=== PATIENT | male | born 1945 | race Caucasian/White ===

== ENCOUNTER 2017-07-17 11:05 | Day surgery (SDC) | payer OTHER, MEDICARE ==
[~2017-07-17 11:05] MED LIST: CLINDAMYCIN 900 MG/DEXTROSE 50 ML IV ONE
[2017-07-17] MEDS ORDERED: LR 1,000 ML IV ONE ×2 (11:52)
[2017-07-17] MEDS ORDERED: LIDOCAINE 1% 2 ML INJ ID PRN ×2 (11:52)
[2017-07-17] MEDS ORDERED: OXYCODONE/APAP 5/325 TAB PO PRN ×4 (12:09→13:07)
[2017-07-17] MEDS ORDERED: ONDANSETRON DISINTEGRATING 4 MG TAB PO PRN ×2 (12:09)
[2017-07-17] MEDS ORDERED: ONDANSETRON 4 MG/2 ML VIAL IVP PRN ×2 (12:09)
--- NOTE | 2017-07-17 12:09 | PDHPUP ---
History & Physical Update H&P update statement: This history and physical update is based on an assessment of the patient which was completed after admission or registration (within 24 hours), but prior to the surgery/procedure. H&P update: H&P reviewed & patient examined, no change in patient's condition since H&P completed
[2017-07-17] MEDS ORDERED: CLINDAMYCIN 900 MG/DEXTROSE/50 ML BAG IV ONE ×2 (12:10)
[2017-07-17] MEDS ORDERED: BUPIVACAINE 0.5% 30 ML SDV ONE ×2 (12:13)
--- NOTE | 2017-07-17 12:13 | PDANEPAE ---
ANE History of Present Illness 72 yo M with diabetic foot, here for amputation R big toe ANE Past Medical History - Cardiovascular History Hx Hypertension: Yes Hx Arrhythmias: No Hx Chest Pain: No Hx Coronary Artery / Peripheral Vascular Disease: Yes Hx CHF / Valvular Disease: No Hx Palpitations: No Cardiovascular History Comment: LBBB. CARDIOMYOPATHY. SEPTIC SHOCK 02/2015 - Pulmonary History Hx COPD: Yes Hx Asthma/Reactive Airway Disease: No Hx Recent Upper Respiratory Infection: No Hx Oxygen in Use at Home: No Hx Sleep Apnea: Yes Sleep Apnea Screening Result - Last Documented: Positive Pulmonary History Comment: ZIYAD USES C-PAP. INSTRUCTED TO BRING DOS - Neurologic History Hx Cerebrovascular Accident: No Hx Seizures: No Hx Dementia: No Neurologic History Comment: BRAIN INJURY RESULTING IN HYPOXEMIA AND RESIDUAL COGNITIVE ISSUES. 02/2015 - Endocrine History Hx Diabetes: Yes Endocrine History Comment: IDDM - Renal History Hx Renal Disorders: Yes Renal History Comment: ACUTE RENAL FAILURE 2014. NOW WITH CHRONIC KIDNEY DX - Liver History Hx Hepatic Disorders: No - Neurological & Psychiatric Hx Hx Neurological and Psychiatric Disorders: No - Cancer History Hx Cancer: Yes Cancer History Comment: SKIN - Congenital Disorder History Hx Congenital Disorders: No - GI History Hx Gastrointestinal Disorders: No - Other Health History Other Health History: GOUT. NEUROPATHY. DIFFICULTY WALKING. NON HEALING RT FOOT ULCER. ANEMIA - Chronic Pain History Chronic Pain: Yes (RT FOOT) - Surgical History Prior Surgeries: RT BUNION/HAMMERTOE REPAIR HARDWARE 11/27/2015. ANKLE REPAIR. LT PARATOID TUMOR. DEBRIDEMENT RT GREAT TOE 2014. TONSILLECTOMY ANE Review of Systems Review of Systems: - Exercise capacity METS (RN): 4 METS ANE Patient History - Allergies Allergies/Adverse Reactions: amlodipine Allergy (Verified 11/26/15 17:24) Swelling/neck,face,throat lisinopril Allergy (Verified 11/26/15 17:24) Swelling/neck,face,throat Penicillins Allergy (Verified 11/26/15 17:24) Hives - Home Medications Home Medications: Herbals/Supplements -Info Only 1 ea PO DAILY 03/20/15 [Last Taken 07/16/17] Aspirin EC 81 mg (*) DAILY06 07/16/17 [Last Taken 07/16/17] Herbal Drugs DAILY 07/16/17 [Last Taken 07/17/17] Lantus 100 UNITS/ML (*) BID 07/16/17 [Last Taken 07/17/17 09:00 36 units] novoLOG QID 07/16/17 [Last Taken 07/17/17 09:00 4 units] - NPO status NPO Since - Liquids (Date): 07/17/17 NPO Since - Liquids (Time): 08:00 NPO Since - Solids (Date): 07/16/17 NPO Since - Solids (Time): 22:00 - Anes Hx Anes Hx: no prior problems - Smoking Hx Smoking Status: Former smoker - Alcohol Use Alcohol Use: None - Family Anes Hx Family Anes Hx: none ANE Labs/Vital Signs - Vital Signs Blood Pressure: 171/71 Heart Rate: 50 Respiratory Rate: 18 O2 Sat (%): 98 Height: 200.66 cm Weight: 127.006 kg ANE Physical Exam - Airway Neck exam: FROM Mallampati Score: Class 2 Mouth exam: normal dental/mouth exam, arriola - Pulmonary Pulmonary: no respiratory distress, clear to auscultation - Cardiovascular Cardiovascular: regular rate and rhythym, no murmur, rub, or gallop - ASA Status ASA Status: III ANE Anesthesia Plan Anesthesia Plan: GA with mask
[2017-07-17] MEDS ORDERED: LIDOCAINE 2% 5 ML SDV ONE ×2 (12:14)
[2017-07-17] MEDS ORDERED: PROPOFOL/EMULSION 500 MG/50 ML BOTTLE IV ONE ×4 (12:29→12:58)
[2017-07-17] MEDS ORDERED: NALOXONE HCL 0.4 MG/ML INJ IVP PRN ×2 (13:07)
[2017-07-17] MEDS ORDERED: fentaNYL 100 MCG/2 ML INJ IVP PRN ×2 (13:07)
--- NOTE | 2017-07-17 13:43 | POSTANESTH ---
Post Anesthetic Evaluation Cardiovascular Status: Normal, Stable, Similar to Pre-Op Cond Respiratory Status: Normal, Stable, Similar to Pre-op Cond. Level of Consciousness/Mental Status: Can Participate in Eval, Alert and Oriented Pain Control: Adequate, Prn Tx Ordered Nausea/Vomiting Control: Adequate, Prn Tx Ordered Complications Possibly Related to Anesthesia: None Noted
[2017-07-17 14:21] VITALS: TEMP 97.5
[2017-07-17 14:52] VITALS: BP 157/86; PULSE 45; RESP 14; O2SAT 98
--- NOTE | 2017-07-17 16:24 | GOP ---
[f rep st] OPERATIVE REPORT DATE OF OPERATION: 07/17/2017 SURGEON: Sivakumar Huggins DPM FATBACK TRIMMER: None. ANESTHESIA: Local with monitored anesthesia care. PREOPERATIVE DIAGNOSIS: Hallux malleus, right foot. POSTOPERATIVE DIAGNOSIS: Hallux malleus, right foot. PROCEDURE PERFORMED: FINDINGS: ESTIMATED BLOOD LOSS: Scant. DESCRIPTION OF PROCEDURE: Under mild sedation, patient was brought to the operating room, placed on the operating table in supine position. Following further IV sedation, 20 cc of 0.5% Marcaine plain was infiltrated about the patient's right forefoot. The foot was then scrubbed, prepped, and draped in the usual aseptic manner. A sterile pneumatic tourniquet was placed about the patient's well-padd ed supra malleolar area. The foot was exsanguinated with an Esmarch bandage and the tourniquet was i nflated to 250 mmHg. Attention was then directed to the right hallux where a fishmouth type incision was made overlying th e IPJ of the right hallux. The incision was taken straight to bone. Using a sagittal saw, the head of the proximal phalanx as well as the distal phalanx were excised and passed from the operative fiel d. All sharp edges were then rongeured and smoothed out. The wound was closed in layers following i rrigation with copious amounts of sterile normal saline. Any debulking and/or revision of the skin f olds was done in a systematic manner. Prior to closure, a 2 cm x 3 cm AmnioFix amniotic tissue membr ane was placed over the residual bone of the proximal phalanx. Deep tissues were closed with 2-0 Luis ryl. The skin was reapproximated coapted utilizing an interrupted horizontal mattress-type suture of 3-0 nylon. The wound was then dressed with Xeroform and a sterile compressive dressing consisting o f 4 x 4s and Shannan. Coban wrap was also applied for further compression. The tourniquet was dropped and prompt hyperemic response was noted to all residual digits of the right foot. The patient tolerated the procedure and anesthesia well. He was transferred to the recovery room wit h vital signs stable, vascular status intact to all residual digits of the right foot. The patient will be discharged home on following written and oral postoperative instructions: 1. Keep dressing clean, dry, and intact. 2. Use caution while taking pain medication. 3. Ambulation at all times within the boot. 4. All followup questions and concerns are to be directed toward [facility] [phone]. PATHOLOGY: None. PROCEDURE PERFORMED: Partial amputation of the right hallux. HEMOSTASIS: Pneumatic ankle tourniquet about the patient's right ankle at 250 mmHg x20 minutes. MATERIALS: None. INJECTABLES: 20 cc of 0.5% Marcaine plain. COMPLICATIONS: None. INDICATIONS FOR PROCEDURE: The patient is a 72-year-old gentleman who has diabetic peripheral neurop athy with bilateral 1 through 5 hammertoe contractures. The patient has a long history of ulceration s of the bilateral feet. The right hallux has shown most chronic and most recent ulcerations, which the patient has failed at conservative care. The patient understands the risks, benefits, and altern atives to the proposed procedure and wishes to proceed. /[id number]/MODL
== END 2017-07-17 15:14 | disposition home or self-care (01) ==
LOC: FSGY 11:05
PROVIDERS: ATTEND Podiatrist Foot & Ankle Surgery
PROC: 0Y6P0Z3 Detachment at Right 1st Toe, Low, Open Approach (ICD-10-PCS; principal; 2017-07-17 12:15)
DX: L97.511 Non-pressure chronic ulcer of other part of right foot limited to breakdown of skin (principal); M20.41 Other hammer toe(s) (acquired), right foot; M20.42 Other hammer toe(s) (acquired), left foot; E11.42 Type 2 diabetes mellitus with diabetic polyneuropathy; Z79.4 Long term (current) use of insulin; G47.33 Obstructive sleep apnea (adult) (pediatric); I42.9 Cardiomyopathy, unspecified; N18.9 Chronic kidney disease, unspecified
CPT/HCPCS: C9399; J2704

== ENCOUNTER → 2017-12-22 | Outpatient (CLI) | payer OTHER, MEDICARE | LOC: BHFA 13:15 | PROVIDERS: ATTEND Internal Medicine Cardiovascular Disease | DX: I42.9 Cardiomyopathy, unspecified (principal) | CPT/HCPCS: 78452; 93017; 93306; A9500; J2785 ==

== ENCOUNTER → 2018-10-04 | Outpatient (CLI) | payer OTHER, MEDICARE | LOC: FIMAGING 14:03 | PROVIDERS: ATTEND Internal Medicine Cardiovascular Disease | DX: J40 Bronchitis, not specified as acute or chronic (principal); I50.9 Heart failure, unspecified; I44.7 Left bundle-branch block, unspecified ==

== ENCOUNTER → 2018-10-07 | Outpatient (CLI) | payer OTHER, MEDICARE | LOC: FIMAGING 10:11 | PROVIDERS: ATTEND Internal Medicine Nephrology | DX: N18.3 Chronic kidney disease, stage 3 (moderate) (principal); N26.1 Atrophy of kidney (terminal); K83.9 Disease of biliary tract, unspecified; R91.8 Other nonspecific abnormal finding of lung field; J84.10 Pulmonary fibrosis, unspecified; K42.9 Umbilical hernia without obstruction or gangrene; K57.92 Diverticulitis of intestine, part unspecified, without perforation or abscess without bleeding; M51.37 Other intervertebral disc degeneration, lumbosacral region; M53.3 Sacrococcygeal disorders, not elsewhere classified; Z99.2 Dependence on renal dialysis ==

== ENCOUNTER → 2018-10-15 | Outpatient (CLI) | payer OTHER, MEDICARE | LOC: BHFA 15:30 | PROVIDERS: ATTEND Internal Medicine Cardiovascular Disease | DX: Z01.818 Encounter for other preprocedural examination (principal); I50.22 Chronic systolic (congestive) heart failure; I44.7 Left bundle-branch block, unspecified ==

== ENCOUNTER 2018-10-16 18:10 | Inpatient (IN) | payer OTHER, MEDICARE ==
[2018-10-16] MEDS ORDERED: NS 3,800 ML IV ONE ×2 (18:37→19:01)
[2018-10-16] MEDS ORDERED: NS 1,000 ML IV ONE (18:48)
--- NOTE | 2018-10-16 18:57 | EDPHY ---
HPI/HX/ROS/PE/MDM Narrative: CHIEF COMPLAINT: Fever, chills, fatigue, confusion HISTORY OF PRESENT ILLNESS: The patient is a 73 y/o male with a history of diabetes, renal insufficiency, heart failure, and sepsis complaining of rapid onset of fatigue, fever, and chills. He is due to have two of his toes amputated for ulcers that won't heal. About 4 hours prior to arrival, he began experiencing chills. His reports his fever began to increase rapidly and he became fatigued and confused. He is more hypertensive than usual at 190s/ 80s. He denies urinary complaints, recent illness, vomiting, diarrhea, abdominal pain, flank pain or any other associated symptoms. He does report a mild headache. No chest pain, shortness of breath, palpitations, urinary complaints. REVIEW OF SYSTEMS: A comprehensive 10 system review of systems is otherwise negative aside from elements mentioned in the history of present illness and medical decision making PAST MEDICAL HISTORY: Diabetes, renal insufficiency, heart failure, sepsis, right great toe amputation, toe ulcers SOCIAL HISTORY: at bedside, lives in [place], [facility] VITAL SIGNS: Reviewed by me 193/98, 108, oral temperature by me 38. 5. GENERAL: Well-developed, well-nourished. Ill appearing. Laying with his eyes closed. Slow to respond. Warm to the touch. HEENT: Atraumatic. Eyes: No icterus, no injection. Mouth: moist mucous membranes. No erythema or lesions. Neck: supple with no adenopathy. LUNGS: Clear to auscultation bilaterally, no wheezes, rhonchi or rales. CARDIAC: Borderline tachycardic. Regular rhythm, no rubs, murmurs or gallops. ABDOMEN: Soft, nontender, nondistended, bowel sounds normal. BACK: No CVA tenderness. EXTREMITIES: Ulcers at the distal tip of the second toes bilaterally. Left toe is covered by a bandage. Right 2nd toe is swollen, erythematous with shallow ulceration at the tip. There is no purulent discharge. NEURO: Sleeping, awakes easily, and oriented, grossly nonfocal. SKIN: Warm and dry, no rash. PSYCHIATRIC: Normal mentation, no agitation. ED Course: Study: X-ray of the chest Indication: Fever Results: X-ray of the chest was obtained. The results of the study are: negative for acute findings The study was read by the radiologist, Dr. Mcdaniel. I viewed the images myself on the PACS system. The patient presents with rapid onset of fever, chills, fatigue, and confusion. His creatinine is elevated from baseline of about 1.8-1.9 to 3.1. He meets sepsis criteria at this time. Plan for lab work including cultures and urinalysis and EKG. Severe Sepsis/Septic Shock Care Note The patient presents to the ED with possible cellulitis identified as an acute infection. The patient did have evidence of end-organ dysfunction and met criteria for severe sepsis. This condition was identified by myself at 1900. The patients vital signs are 206/89, 95, 28, 95%, 38.5. The patient has a venous lactic acid performed within 3 hours of the identification of severe sepsis which was found to be 2.2. The patient has blood cultures drawn and received vancomycin IV, per the severe sepsis treatment protocol. The initial lactate was elevated and rechecked within 6 hours of the identification time of severe sepsis and found to be: 1.5. 7:30 PM -after fluids, the patient's lactic acid diminished to 1.5. The EKG has no acute ischemic changes, patient's BNP is 1950. Chest x-ray is negative for acute findings. Urinalysis does not indicate any infection. Dr. Choudhary will be the admitting physician. MDM: Differential diagnosis for fever in adults was considered including but not limited to pneumonia, urinary tract infection, cellulitis, diabetic foot ulcer, bacteremia, viral syndrome, and influenza. - Data Points Imaging Results: Imaging Impressions Chest X-Ray 10/16/18 19:02 Impression: Clear lungs. No pneumonia or effusion. Imaging: Discussed imaging studies w/ counter stitcher Radiologist Laboratory Results: Laboratory Results 10/16/18 18:40 10/16/18 18:40 10/16/18 10/16/18 10/16/18 18:59 18:59 18:45 WBC RBC Hgb POC Hgb 13.6 gm/dL L gm/dL (13.7-17.5) Hct POC Hct 40 % % (40-51) MCV MCH MCHC RDW Plt Count MPV Neut % (Auto) Lymph % (Auto) [place] % (Auto) Eos % (Auto) Baso % (Auto) Nucleat RBC Rel Count Absolute Neuts (auto) Absolute Lymphs (auto) Absolute Monos (auto) Absolute Eos (auto) Absolute Basos (auto) Absolute Nucleated RBC Immature Gran % Immature Gran # RBC/WBC/PLT Morphology Platelet Estimate PT INR APTT VBG Lactic Acid 1.5 mmol/L mmol/L (0.7-2.1) POC Sodium 140 mEq/L mEq/L (135-145) Sodium POC Potassium 4.7 mEq/L mEq/L (3.3-5.0) Potassium POC Chloride 106 mEq/L mEq/L (97-110) Chloride Carbon Dioxide POC Total CO2 21 mEq/L L mEq/L (22-31) Anion Gap POC BUN 39 mg/dL H mg/dL (7-23) BUN Creatinine POC Creatinine 3.1 mg/dL H mg/dL (0.7-1.3) Estimated GFR Glucose POC Glucose 173 mg/dL H mg/dL (70-100) Calcium Total Bilirubin Conjugated Bilirubin Unconjugated Bilirubin AST ALT Alkaline Phosphatase Troponin I 0.032 ng/mL ng/mL (0.000-0.034) NT-Pro-B Natriuret Pep Total Protein Albumin Lipase Urine Color Urine Appearance Urine pH Ur Specific [place] Urine Protein Urine Ketones Urine Blood Urine Nitrate Urine Bilirubin Urine Urobilinogen Ur Leukocyte Esterase Urine RBC Urine WBC Ur Epithelial Cells Urine Bacteria Hyaline Casts Urine Glucose 10/16/18 10/16/18 10/16/18 18:40 18:40 18:40 WBC RBC Hgb POC Hgb Hct POC Hct MCV MCH MCHC RDW Plt Count MPV Neut % (Auto) Lymph % (Auto) [place] % (Auto) Eos % (Auto) Baso % (Auto) Nucleat RBC Rel Count Absolute Neuts (auto) Absolute Lymphs (auto) Absolute Monos (auto) Absolute Eos (auto) Absolute Basos (auto) Absolute Nucleated RBC Immature Gran % Immature Gran # RBC/WBC/PLT Morphology Platelet Estimate PT 13.2 SEC SEC (12.0-15.0) INR 0.98 (0.83-1.16) APTT 28.2 SEC SEC (23.0-38.0) VBG Lactic Acid POC Sodium Sodium POC Potassium Potassium POC Chloride Chloride Carbon Dioxide POC Total CO2 Anion Gap POC BUN BUN Creatinine POC Creatinine Estimated GFR Glucose POC Glucose Calcium Total Bilirubin 0.7 mg/dL mg/dL (0.1-1.4) Conjugated Bilirubin 0.2 mg/dL mg/dL (0.0-0.5) Unconjugated Bilirubin 0.5 mg/dL mg/dL (0.0-1.1) AST 20 IU/L IU/L (17-59) ALT 26 IU/L IU/L (21-72) Alkaline Phosphatase 90 IU/L IU/L (38-126) Troponin I NT-Pro-B Natriuret Pep 1950 pg/mL H pg/mL (0-125) Total Protein 6.6 g/dL g/dL (6.3-8.2) Albumin 4.0 g/dL g/dL (3.5-5.0) Lipase 467 IU/L H IU/L (23-300) Urine Color YELLOW Urine Appearance CLEAR Urine pH 6.0 (5.0-7.5) Ur Specific [place] 1.017 (1.002-1.030) Urine Protein 3+ H (NEGATIVE) Urine Ketones NEGATIVE (NEGATIVE) Urine Blood NEGATIVE (NEGATIVE) Urine Nitrate NEGATIVE (NEGATIVE) Urine Bilirubin NEGATIVE (NEGATIVE) Urine Urobilinogen NEGATIVE EU EU (0.2-1.0) Ur Leukocyte Esterase NEGATIVE (NEGATIVE) Urine RBC 1-3 /hpf /hpf (0-3) Urine WBC 1-3 /hpf /hpf (0-3) Ur Epithelial Cells TRACE /lpf /lpf (NONE-1+) Urine Bacteria TRACE /hpf H /hpf (NONE SEEN) Hyaline Casts 1-5 /lpf /lpf (0-1) Urine Glucose 1+ H (NEGATIVE) 10/16/18 10/16/18 10/16/18 18:40 18:40 18:40 WBC 18.07 10^3/uL H 10^3/uL (3.80-9.50) RBC 4.19 10^6/uL L 10^6/uL (4.40-6.38) Hgb 13.8 g/dL g/dL (13.7-17.5) POC Hgb Hct 39.7 % L % (40.0-51.0) POC Hct MCV 94.7 fL fL (81.5-99.8) MCH 32.9 pg pg (27.9-34.1) MCHC 34.8 g/dL g/dL (32.4-36.7) RDW 12.7 % % (11.5-15.2) Plt Count 219 10^3/uL 10^3/uL (150-400) MPV 10.3 fL fL (8.7-11.7) Neut % (Auto) 88.1 % H % (39.3-74.2) Lymph % (Auto) 2.9 % L % (15.0-45.0) [place] % (Auto) 8.2 % % (4.5-13.0) Eos % (Auto) 0.3 % L % (0.6-7.6) Baso % (Auto) 0.2 % L % (0.3-1.7) Nucleat RBC Rel Count 0.0 % % (0.0-0.2) Absolute Neuts (auto) 15.92 10^3/uL H 10^3/uL (1.70-6.50) Absolute Lymphs (auto) 0.52 10^3/uL L 10^3/uL (1.00-3.00) Absolute Monos (auto) 1.48 10^3/uL H 10^3/uL (0.30-0.80) Absolute Eos (auto) 0.05 10^3/uL 10^3/uL (0.03-0.40) Absolute Basos (auto) 0.04 10^3/uL 10^3/uL (0.02-0.10) Absolute Nucleated RBC 0.00 10^3/uL 10^3/uL (0-0.01) Immature Gran % 0.3 % % (0.0-1.1) Immature Gran # 0.05 10^3/uL 10^3/uL (0.00-0.10) RBC/WBC/PLT Morphology TNP Platelet Estimate TNP PT INR APTT VBG Lactic Acid 2.2 mmol/L H mmol/L (0.7-2.1) POC Sodium Sodium 138 mEq/L mEq/L (135-145) POC Potassium Potassium 4.8 mEq/L mEq/L (3.5-5.2) POC Chloride Chloride 106 mEq/L mEq/L (97-110) Carbon Dioxide 20 mEq/l L mEq/l (22-31) POC Total CO2 Anion Gap 12 mEq/L mEq/L (6-14) POC BUN BUN 41 mg/dL H mg/dL (7-23) Creatinine 2.7 mg/dL H mg/dL (0.7-1.3) POC Creatinine Estimated GFR 23 Glucose 170 mg/dL H mg/dL (70-100) POC Glucose Calcium 8.3 mg/dL L mg/dL (8.5-10.4) Total Bilirubin 0.7 mg/dL mg/dL (0.1-1.4) Conjugated Bilirubin Unconjugated Bilirubin AST ALT Alkaline Phosphatase Troponin I NT-Pro-B Natriuret Pep Total Protein Albumin Lipase Urine Color Urine Appearance Urine pH Ur Specific [place] Urine Protein Urine Ketones Urine Blood Urine Nitrate Urine Bilirubin Urine Urobilinogen Ur Leukocyte Esterase Urine RBC Urine WBC Ur Epithelial Cells Urine Bacteria Hyaline Casts Urine Glucose Medications Given: Sodium Chloride (Ns) 3,800 mls @ 633.3333 mls/hr 30 ml/kg infuse over 6 hr ( 3800 ml) IV EDNOW ONE PRN Reason: Protocol Stop: 10/17/18 01:00 Last Admin: 10/16/18 18:50 Dose: 3,800 mls Discontinued Medications Acetaminophen (Tylenol) 1,000 mg PO EDNOW ONE Stop: 10/16/18 19:06 Last Admin: 10/16/18 19:07 Dose: 1,000 mg Sodium Chloride (Ns) 3,800 mls @ 7,600 mls/hr 30 ml/kg infuse over 30 min ( 3800 ml) IV EDNOW ONE PRN Reason: Protocol Stop: 10/16/18 19:06 Last Admin: 10/16/18 19:04 Dose: Not Given Sodium Chloride (Ns) 1,000 mls @ 0 mls/hr IV ONCE ONE; Wide Open PRN Reason: Protocol Stop: 10/16/18 18:49 Last Admin: 10/16/18 19:03 Dose: Not Given Vancomycin/Sodium Chloride (Vancomycin 1 Gm (Premix)) 250 mls @ 250 mls/hr IV EDNOW ONE PRN Reason: Protocol Stop: 10/16/18 21:05 Last Admin: 10/16/18 20:13 Dose: 250 mls Point of Care Test Results: Chemistry 10/16/18 18:45 POC Sodium 140 mEq/L mEq/L (135-145) POC Potassium 4.7 mEq/L mEq/L (3.3-5.0) POC Chloride 106 mEq/L mEq/L (97-110) POC Total CO2 21 mEq/L L mEq/L (22-31) POC BUN 39 mg/dL H mg/dL (7-23) POC Creatinine 3.1 mg/dL H mg/dL (0.7-1.3) POC Glucose 173 mg/dL H mg/dL (70-100) ISTAT H&H 10/16/18 18:45 POC Hgb 13.6 gm/dL L gm/dL (13.7-17.5) POC Hct 40 % % (40-51) General Time Seen by Provider: 10/16/18 18:45 Initial Vital Signs: Initial Vital Signs Temperature (C) 37.7 C 10/16/18 18:21 Heart Rate 108 H 10/16/18 18:21 Respiratory Rate 18 10/16/18 18:21 Blood Pressure 193/98 H 10/16/18 18:21 O2 Sat (%) 95 10/16/18 18:21 O2 Delivery Mode Nasal Cannula O2 (L/minute) 2 Allergies/Adverse Reactions: amlodipine Allergy (Verified 10/16/18 18:21) Swelling/neck,face,throat lisinopril Allergy (Verified 10/16/18 18:21) Swelling/neck,face,throat Penicillins Allergy (Verified 10/16/18 18:21) Hives Home Medications: Medication Instructions Recorded Nitroglycerin [Nitrostat 0.4 mg 0.4 mg SL PRN PRN #1 btl 04/19/15 (*)] Ranolazine [Ranexa] 1,000 mg PO BID #60 tab.er.12h 04/19/15 Aspirin EC [Aspirin EC 81 mg (*)] 81 mg PO DAILY 07/16/17 Insulin Aspart [novoLOG] 20 - 35 unit SC QID 07/16/17 Allopurinol [Allopurinol 100 MG 100 mg PO DAILY 10/16/18 (*)] Atorvastatin Calcium 80 mg PO HS 10/16/18 Calcium Carbonate [Tums 500MG (*)] 1,000 mg PO BID@1800,2100 10/16/18 Carvedilol [Coreg (*)] 12.5 mg PO BID 10/16/18 Cholecalciferol Vit D3 [Vitamin D3 2,000 units PO BID 10/16/18 2000 units tab (OTC)] Docusate Sodium [Colace] 100 mg PO HS 10/16/18 Ferrous Sulfate [Ferrous Sulf 325 325 mg PO DAILY 10/16/18 MG (*)] Herbals/Supplements -Info Only 1 ea PO AD 10/16/18 Insulin Glargine [Lantus Syringe] 36 units SC HS 10/16/18 Insulin Glargine [Lantus Syringe] 45 units SC DAILY 10/16/18 Loratadine [Claritin 10 mg] 10 mg PO DAILY 10/16/18 Losartan Potassium [Cozaar 25 mg 25 mg PO DAILY 10/16/18 (*)] Magnesium Oxide [Magnesium Oxide 400 mg PO DAILY 10/16/18 400 mg (*)] Homeland-3 Fatty Acids [Fish Oil 1000 1,000 mg PO DAILY 10/16/18 mg (*)] hydrALAZINE [Apresoline 50 mg (*)] 50 mg PO BID 10/16/18 Departure - Departure Disposition: [facility] Acute Clinical Impression: Chills Sepsis Qualifiers: Sepsis type: sepsis due to unspecified organism Qualified Code(s): A41.9 - Sepsis, unspecified organism Diabetic foot ulcer Qualifiers: Diabetic foot ulcer location: toe Diabetes mellitus type: type 2 Laterality: unspecified laterality Non-pressure ulcer stage: with fat layer exposed Qualified Code(s): E11.621 - Type 2 diabetes mellitus with foot ulcer Fever Qualifiers: Fever type: unspecified Qualified Code(s): R50.9 - Fever, unspecified Condition: Fair Report Scribed for: Katie Cooper Report Scribed by: Eloisa Blake Date of Report: 10/16/18 Time of Report: 19:59 Physician Review and Approval Statement: Portions of this note were transcribed by a registered medical transcriptionist. I personally performed a history, physical exam, medical decision making, and confirmed accuracy of information the transcribed note.
[2018-10-16] MEDS ORDERED: ACETAMINOPHEN 500 MG TAB PO ONE (19:05)
[2018-10-16 19:13] LABS: INR 0.98 (0.83-1.16); PROTIME(PATIENT) 13.2 SEC (12.0-15.0)
[2018-10-16 20:00] LABS: PLATELET COUNT 219 10^3/uL (150-400)
[2018-10-16] MEDS ORDERED: VANCOMYCIN HCL/NORMAL SALINE 250 ML IV ONE (20:06)
[2018-10-16] MEDS ORDERED: oxyCODONE IR 5 MG TAB PO PRN (21:05)
[2018-10-16] MEDS ORDERED: HYDROCODONE/APAP 5/325 TAB PO PRN (21:05)
[2018-10-16] MEDS ORDERED: ONDANSETRON 4 MG/2 ML VIAL IVP PRN (21:05)
[2018-10-16] MEDS ORDERED: ACETAMINOPHEN 325 MG TAB PO PRN (21:05)
[2018-10-16] MEDS ORDERED: ONDANSETRON DISINTEGRATING 4 MG TAB PO PRN (21:05)
[2018-10-16] MEDS ORDERED: HYDROmorphONE/DILAUDID 1 MG/ML INJ IVP PRN (21:05)
[2018-10-16] MEDS ORDERED: PROMETHAZINE HCL 25 MG/ML INJ IVP PRN (21:05)
[2018-10-16] MEDS ORDERED: D50W 25 GM/50 ML VIAL IVP PRN (21:10)
--- NOTE | 2018-10-16 22:20 | PDGENHP ---
History and Physical - Chief Complaint shaking chills - History of Present Illness 73 yo M with PMH of IDDM, systolic heart failure and CKD and issues with chronic foot infections s/p multiple toe amputations presenting with rigors at home that were present for about 4 or 5 hours prior to arrival here. He had low grade fever at home and on arrival here had a temp of 38.5. He has issues with chronic foot infections with multiple amputations and had an episode of septic shock several years ago treated at [facility] due to toe infection that was complicated by cardiac arrest and anoxic brain injury. At that time the organism was found to be strep dysgalactiae. He has been followed by Dr. Huggins and there is a plan for likely amputation of his right 2nd toe sometime in the future. His notes that since yesterday that toe has had increased redness and swelling and there is an open region at the tip that has had some drainage. He is currently being worked up for possible kidney transplant. His notes he has not been eating or drinking much today, she states that given the patients brain injury he has poor short term memory and that his answers might not be correct and therefore some of this history is obtained by her as well. History Information - Allergies/Home Medication List Allergies/Adverse Reactions: amlodipine Allergy (Verified 10/16/18 18:21) Swelling/neck,face,throat lisinopril Allergy (Verified 10/16/18 18:21) Swelling/neck,face,throat Penicillins Allergy (Verified 10/16/18 18:21) Hives Home Medications: Aspirin EC [Aspirin EC 81 mg (*)] 81 mg PO DAILY 07/16/17 [Last Taken 10/16/18 10:00] Insulin Aspart [novoLOG] 20 - 35 unit SC QID 07/16/17 [Last Taken 10/16/18] Allopurinol [Allopurinol 100 MG (*)] 100 mg PO DAILY 10/16/18 [Last Taken 10:00] Atorvastatin Calcium 80 mg PO HS 10/16/18 [Last Taken 10/15/18] Calcium Carbonate [Tums 500MG (*)] 1,000 mg PO BID@1800,2100 10/16/18 [Last Taken 10/15/18] Carvedilol [Coreg (*)] 12.5 mg PO BID 10/16/18 [Last Taken 10/16/18 10:00] Cholecalciferol Vit D3 [Vitamin D3 2000 units tab (OTC)] 2,000 units PO BID 11/02 [Last Taken 10/16/18 10:00] Docusate Sodium [Colace] 100 mg PO HS 10/16/18 [Last Taken 10/15/18] Ferrous Sulfate [Ferrous Sulf 325 MG (*)] 325 mg PO DAILY 10/16/18 [Last Taken 10/16/18 10:00] Herbals/Supplements -Info Only 1 ea PO AD 10/16/18 [Last Taken Unknown] Insulin Glargine [Lantus Syringe] 36 units SC HS 10/16/18 [Last Taken 10/15/18] Insulin Glargine [Lantus Syringe] 45 units SC DAILY 10/16/18 [Last Taken 10:00] Loratadine [Claritin 10 mg] 10 mg PO DAILY 10/16/18 [Last Taken 10/16/18 10:00] Losartan Potassium [Cozaar 25 mg (*)] 25 mg PO DAILY 10/16/18 [Last Taken 10:00] Magnesium Oxide [Magnesium Oxide 400 mg (*)] 400 mg PO DAILY 10/16/18 [Last Taken 10/16/18 10:00] Hayes-3 Fatty Acids [Fish Oil 1000 mg (*)] 1,000 mg PO DAILY 10/16/18 [Last Taken 10/16/18 10:00] hydrALAZINE [Apresoline 50 mg (*)] 50 mg PO BID 10/16/18 [Last Taken Unknown] I have personally reviewed and updated: family history, medical history, social history, surgical history - Past Medical History CHF (with prior EF of 35 now increased to 52%, thought to be due to agent orange exposure), COPD, diabetes type 2 (complicated by peripheral neuropathy and nephropathy), hypertension, hyperlipidemia Additional medical history: ZIYAD on cpap. septic shock. osteomyelitis. cardiac arrest. anoxic brain injury. agent orange exposure - Surgical History Additional surgical history: parotid tumor removal. ankle surgery. several partial toe amputations - Family History Positive for: stroke (father) - Social History Smoking Status: Former smoker Alcohol Use: Rarely Drug Use: None Additional social history: , lives independently Review of Systems Review of Systems: ROS: 10pt was reviewed & negative except for what was stated in HPI & below Physical Exam Physical Exam: Temp Pulse Resp BP Pulse Ox 36.8 C 93 18 164/74 H 99 10/16/18 19:46 10/16/18 21:23 10/16/18 21:23 10/16/18 21:23 10/16/18 21:23 O2 (L/minute) 2 Constitutional: no apparent distress, appears nourished Eyes: PERRL, anicteric sclera Ears, Nose, Mouth, Throat: moist mucous membranes, hearing normal Cardiovascular: regular rate and rhythym, no murmur, rub, or gallop, No edema Respiratory: no respiratory distress, no rales or rhonchi, clear to auscultation Gastrointestinal: normoactive bowel sounds, soft, non-tender abdomen Genitourinary: no bladder tenderness Skin: warm, other (right 2nd toe erythematous with open wound on tip; BLE venous stasis changes) Musculoskeletal: full muscle strength, no muscle tenderness Neurologic: AAOx3 Psychiatric: interacting appropriately, not anxious, not encephalopathic Lab Data & Imaging Review 10/16/18 18:40 10/16/18 18:40 WBC 18.07 10^3/uL (3.80-9.50) H 10/16/18 18:40 RBC 4.19 10^6/uL (4.40-6.38) L 10/16/18 18:40 Hgb 13.8 g/dL (13.7-17.5) 10/16/18 18:40 POC Hgb 13.6 gm/dL (13.7-17.5) L 10/16/18 18:45 Hct 39.7 % (40.0-51.0) L 10/16/18 18:40 POC Hct 40 % (40-51) 10/16/18 18:45 MCV 94.7 fL (81.5-99.8) 10/16/18 18:40 MCH 32.9 pg (27.9-34.1) 10/16/18 18:40 MCHC 34.8 g/dL (32.4-36.7) 10/16/18 18:40 RDW 12.7 % (11.5-15.2) 10/16/18 18:40 Plt Count 219 10^3/uL (150-400) 10/16/18 18:40 MPV 10.3 fL (8.7-11.7) 10/16/18 18:40 Neut % (Auto) 88.1 % (39.3-74.2) H 10/16/18 18:40 Lymph % (Auto) 2.9 % (15.0-45.0) L 10/16/18 18:40 Lares % (Auto) 8.2 % (4.5-13.0) 10/16/18 18:40 Eos % (Auto) 0.3 % (0.6-7.6) L 10/16/18 18:40 Baso % (Auto) 0.2 % (0.3-1.7) L 10/16/18 18:40 Nucleat RBC Rel Count 0.0 % (0.0-0.2) 10/16/18 18:40 Absolute Neuts (auto) 15.92 10^3/uL (1.70-6.50) H 10/16/18 18:40 Absolute Lymphs (auto) 0.52 10^3/uL (1.00-3.00) L 10/16/18 18:40 Absolute Monos (auto) 1.48 10^3/uL (0.30-0.80) H 10/16/18 18:40 Absolute Eos (auto) 0.05 10^3/uL (0.03-0.40) 10/16/18 18:40 Absolute Basos (auto) 0.04 10^3/uL (0.02-0.10) 10/16/18 18:40 Absolute Nucleated RBC 0.00 10^3/uL (0-0.01) 10/16/18 18:40 Immature Gran % 0.3 % (0.0-1.1) 10/16/18 18:40 Immature Gran # 0.05 10^3/uL (0.00-0.10) 10/16/18 18:40 RBC/WBC/PLT Morphology TNP 10/16/18 18:40 Platelet Estimate TNP 10/16/18 18:40 PT 13.2 SEC (12.0-15.0) 10/16/18 18:40 INR 0.98 (0.83-1.16) 10/16/18 18:40 APTT 28.2 SEC (23.0-38.0) 10/16/18 18:40 VBG Lactic Acid 1.5 mmol/L (0.7-2.1) 10/16/18 18:59 POC Sodium 140 mEq/L (135-145) 10/16/18 18:45 Sodium 138 mEq/L (135-145) 10/16/18 18:40 POC Potassium 4.7 mEq/L (3.3-5.0) 10/16/18 18:45 Potassium 4.8 mEq/L (3.5-5.2) 10/16/18 18:40 POC Chloride 106 mEq/L (97-110) 10/16/18 18:45 Chloride 106 mEq/L (97-110) 10/16/18 18:40 Carbon Dioxide 20 mEq/l (22-31) L 10/16/18 18:40 POC Total CO2 21 mEq/L (22-31) L 10/16/18 18:45 Anion Gap 12 mEq/L (6-14) 10/16/18 18:40 POC BUN 39 mg/dL (7-23) H 10/16/18 18:45 BUN 41 mg/dL (7-23) H 10/16/18 18:40 Creatinine 2.7 mg/dL (0.7-1.3) H 10/16/18 18:40 POC Creatinine 3.1 mg/dL (0.7-1.3) H 10/16/18 18:45 Estimated GFR 23 10/16/18 18:40 Glucose 170 mg/dL (70-100) H 10/16/18 18:40 POC Glucose 173 mg/dL (70-100) H 10/16/18 18:45 Calcium 8.3 mg/dL (8.5-10.4) L 10/16/18 18:40 Total Bilirubin 0.7 mg/dL (0.1-1.4) 10/16/18 18:40 Conjugated Bilirubin 0.2 mg/dL (0.0-0.5) 10/16/18 18:40 Unconjugated Bilirubin 0.5 mg/dL (0.0-1.1) 10/16/18 18:40 AST 20 IU/L (17-59) 10/16/18 18:40 ALT 26 IU/L (21-72) 10/16/18 18:40 Alkaline Phosphatase 90 IU/L (38-126) 10/16/18 18:40 Troponin I 0.032 ng/mL (0.000-0.034) 10/16/18 18:59 NT-Pro-B Natriuret Pep 1950 pg/mL (0-125) H 10/16/18 18:40 Total Protein 6.6 g/dL (6.3-8.2) 10/16/18 18:40 Albumin 4.0 g/dL (3.5-5.0) 10/16/18 18:40 Lipase 467 IU/L (23-300) H 10/16/18 18:40 Urine Color YELLOW 10/16/18 18:40 Urine Appearance CLEAR 10/16/18 18:40 Urine pH 6.0 (5.0-7.5) 10/16/18 18:40 Ur Specific Clint 1.017 (1.002-1.030) 10/16/18 18:40 Urine Protein 3+ (NEGATIVE) H 10/16/18 18:40 Urine Ketones NEGATIVE (NEGATIVE) 10/16/18 18:40 Urine Blood NEGATIVE (NEGATIVE) 10/16/18 18:40 Urine Nitrate NEGATIVE (NEGATIVE) 10/16/18 18:40 Urine Bilirubin NEGATIVE (NEGATIVE) 10/16/18 18:40 Urine Urobilinogen NEGATIVE EU (0.2-1.0) 10/16/18 18:40 Ur Leukocyte Esterase NEGATIVE (NEGATIVE) 10/16/18 18:40 Urine RBC 1-3 /hpf (0-3) 10/16/18 18:40 Urine WBC 1-3 /hpf (0-3) 10/16/18 18:40 Ur Epithelial Cells TRACE /lpf (NONE-1+) 10/16/18 18:40 Urine Bacteria TRACE /hpf (NONE SEEN) H 10/16/18 18:40 Hyaline Casts 1-5 /lpf (0-1) 10/16/18 18:40 Urine Glucose 1+ (NEGATIVE) H 10/16/18 18:40 Visualized and Interpreted Chest x-ray results: Yes Chest X-Ray results: no infiltrate Visualized and Interpreted imaging results: Yes Interpretation: foot xray: right 2nd toe concerning for osteomyelitis Visualized and Interpreted EKG results: Yes EKG Interpretation: Positive for: left bundle branch block (present on prior as well) EKG additional interpertation: sinus tachycardia Assessment & Plan Assessment: Chills (Acute) Diabetic foot ulcer (Acute) Fever (Acute) Sepsis (Acute) 73 yo M with PMH of IDDM, systolic heart failure and CKD and issues with chronic foot infections s/p multiple toe amputations presenting with rigors at home found to have severe sepsis and likely osteomyelitis as underlying source # severe sepsis: presenting with fever, leukocytosis and tachycardia with lactate of 2.2 on arrival. HD stable, lactate has cleared with IVF. Given rigors have concern for bacteremia, source presumed to be toe as next # right toe cellulitis/osteomyelitis: with e/o erythema and edema and open wound on the end of the toe that has been draining per , xray concerning for osteomyelitis. His last toe osteo was found to be 2/2 strep dysgalactiae, for now will treat with vanc/clinda and request ID evaluation in am. Suspect he may need amputation while in house and patient is followed by Dr. Huggins of podiatry # CKD: currently at baseline of 2.7, followed by renal and is currently being worked up for possible renal transplant, renally dosing meds, avoid nephrotoxins. This is in part due to his DM but also was precipitated by prior bout of septic shock # DM2: reports control has been up and down recently, patient does have indwelling glucose monitor, will continue his home regimen. Has associated peripheral neuropathy that is severe. # dilated cardiomyopathy: with prior systolic CHF and EF previously 35%, now improved to the 50s, thought to be 2/2 agent orange exposure, followed by [facility] , continue current medications including BB, ARB, statin. Holding ASA for now in case surgery required in coming days. # hx of anoxic brain injury: per patient with issues with short term memory but appears to be oriented x 4 on exam # ziyad: continue cpap # COPD: without e/o acute exacerbation, not chronically on bronchodilators # IP status # FC # Patient new to my care. Old records reviewed and summarized as above. Care plan reviewed with ER doctor as above. Further hx obtained from patients present at bedside.
--- NOTE | 2018-10-16 22:43 | CPEKG ---
Test Reason : OPEN Blood Pressure : / mmHG Vent. Rate : 103 BPM Atrial Rate : 103 BPM P-R Int : 108 ms QRS Dur : 194 ms QT Int : 468 ms P-R-T Axes : 247 069 -80 degrees QTc Int : 613 ms Sinus or ectopic atrial tachycardia Probable left atrial enlargement Left bundle branch block Confirmed by Panfilo Castanon ([id number]) on 10/16/2018 10:42:44 PM Referred By: PHYSICIAN ED Confirmed By:Panfilo Castanon
[2018-10-16] MEDS: CLINDAMYCIN 900 MG/DEXTROSE 50 ML IV SCH (23:39)
[2018-10-16] MEDS: NS 1,000 ML IV SCH (23:39)
[2018-10-16] MEDS: HEPARIN 5,000 UNIT/0.5 ML INJ SC SCH (23:47)
[2018-10-17] MEDS: INSULIN GLARGINE 100 UNITS/ML UNIT SC SCH ×3 (00:14→20:19)
[2018-10-17 05:46] LABS: PLATELET COUNT 142 10^3/uL (150-400)
[2018-10-17] MEDS ORDERED: NON-FORMULARY NEW DRUG (Insulin Aspart [Novolog] 0 UNIT) SC SCH (06:00)
[2018-10-17] MEDS: CLINDAMYCIN 900 MG/DEXTROSE 50 ML IV SCH ×3 (06:14→21:06)
[2018-10-17] MEDS: HEPARIN 5,000 UNIT/0.5 ML INJ SC SCH ×3 (06:14→20:24)
[2018-10-17] MEDS: INSULIN LISPRO 100 UNIT/ML SC SCH ×3 (08:12→17:53)
[2018-10-17] MEDS: CHOLECALCIFEROL VIT D3 2,000 UNITS TAB/CAP PO SCH ×2 (08:15→20:07)
[2018-10-17] MEDS: CARVEDILOL 25 MG TAB PO SCH ×2 (08:21→20:06)
[2018-10-17] MEDS: FERROUS SULFATE 325 MG TAB PO SCH (08:23)
[2018-10-17] MEDS: ALLOPURINOL 100 MG TAB PO SCH (08:23)
[2018-10-17] MEDS: CETIRIZINE 10 MG TAB PO SCH (08:24)
[2018-10-17] MEDS: MAGNESIUM OXIDE 400 MG TAB PO SCH (08:24)
[2018-10-17] MEDS: RANOLAZINE 500 MG TAB.ER PO SCH ×2 (08:25→20:04)
[2018-10-17] MEDS: LOSARTAN POTASSIUM 25 MG TAB PO SCH (08:26)
[2018-10-17] MEDS: OMEGA-3 FATTY ACIDS 1,000 MG CAP PO SCH (08:27)
--- NOTE | 2018-10-17 11:03 | PDMN ---
Medical Necessity Medical necessity: Pt meets IP criteria as of 10/16/2018 per and MCG M-160 ( Sepsis); est los > 2 mn for ongoing tx and management of sepsis with fever, leukocytosis, and tachycardia in the setting of R toe osteomyelitis likely needing amputation; requiring IV ABX, IVF, ID consultation, and management of chronic conditions including CKD, DM II, dilated cardiomyopathy, anoxic brain injury, ZIYAD, and COPD.
[2018-10-17] MEDS: ceFAZolin 2 GM/DEXTROSE 100 ML IV SCH ×2 (12:11→20:10)
--- NOTE | 2018-10-17 15:08 | ASMTCMCOM ---
CM Note CM Note Notes: Pt is a 73 yo m here with fever, chills, cellulitis, diabetes, and renal insufficiency. Pt is followed by Dr. Diaz for podiatry. Pt had referral to get his second toes on both feet amputated later this month but due to infection surgery will likely be sooner. Pts at bedside and supportive. Pt's discharge needs are TBD at this time, CM to follow. Date Signed: 10/17/2018 03:07 PM Electronically Signed By:JOSUÉ Turcios
--- NOTE | 2018-10-17 15:15 | HOSPPROG ---
Hospitalist Progress Note Assessment/Plan: # severe sepsis d/t GAS bacteremia with source R toe - cont ancef, clinda - will need amputation, follows with dr verduzco # CKD - at baseline # DM2 - cont glargine 45/36 and SSI # htn - cont coreg, hydral, losartan # HLD - lipitor # dilated cardiomyopathy and recovered EF - cont coreg, losartan # hx anoxic brain injury # LBBB # ZIYAD/CPAP # COPD - inhalers Subjective: resting comfortable; seen with Objective: Vital Signs Temp Pulse Resp BP Pulse Ox 36.6 C 73 20 150/70 H 95 10/17/18 11:02 10/17/18 11:02 10/17/18 11:02 10/17/18 11:02 10/17/18 11:02 Laboratory Results 10/17/18 05:20 10/17/18 05:20 10/16/18 10/17/18 10/18/18 05:59 05:59 05:59 Intake Total 2341 200 Output Total 400 200 Balance 1941 0 PT 13.2 SEC (12.0-15.0) 10/16/18 18:40 INR 0.98 (0.83-1.16) 10/16/18 18:40 chart reviewed discussed with dr tyson XR personally reviewed - Physical Exam Constitutional: no apparent distress, appears nourished Cardiovascular: regular rate and rhythym, no murmur, rub, or gallop Respiratory: no respiratory distress, no rales or rhonchi, clear to auscultation Gastrointestinal: normoactive bowel sounds, soft, non-tender abdomen, no palpable masses ICD10 Worksheet Patient Problems: Problems Problem Status Onset Debility Acute Cardiomyopathy, dilated Acute COPD (chronic obstructive pulmonary disease) Acute DM2 (diabetes mellitus, type 2) Acute Sepsis Acute Diabetic foot ulcer Acute Fever Acute Chills Acute
[2018-10-17] MEDS: CALCIUM CARBONATE 500 MG CHEWABLE TAB PO SCH ×2 (17:55→20:05)
[2018-10-17] MEDS: DOCUSATE SODIUM 100 MG CAP PO SCH (20:04)
[2018-10-17] MEDS: ATORVASTATIN CALCIUM 40 MG TAB PO SCH (20:05)
--- NOTE | 2018-10-17 20:27 | GCON ---
[f rep st] CONSULTATION INPATIENT INFECTIOUS DISEASE CONSULTATION REFERRING PHYSICIAN: Nehemiah Gallagher MD REASON FOR REFERRAL: Streptococcal bacteremia and sepsis. HISTORY OF PRESENT ILLNESS: Patient is a 73-year-old male with known history of insulin-dependent di abetes with developed chronic kidney disease secondary to diabetes and chronic lower extremity ulcera tions, who is status post toe amputations, who presented yesterday to [facility] wit h rigors at home that were sudden in onset. Patient was noted to be febrile upon admission. He actu ally is planning to have 2 toes amputated at the end of October. Patient presented and was started empirically on vancomycin and clindamycin. Blood cultures turned positive for gram-positive cocci in chains identified by BCID PCR panel as group A strep. Patient received 1 dose of vancomycin in the emergency room. Currently, he is resting comfortably in his hospital bed. The confusion that was pa rt of his presentation has for the most part alleviated. Patient's is present. States that he does look moderately better. PAST MEDICAL HISTORY: 1. Insulin-dependent diabetes. 2. Chronic kidney disease, probably secondary to diabetes. 3. Congestive heart failure. 4. Chronic obstructive pulmonary disease. 5. Hypertension. 6. Hyperlipidemia. 7. Obstructive sleep apnea. 8. Osteomyelitis. 9. History of septic shock. PAST SURGICAL HISTORY: 1. Status post parotid tumor removal. 2. Status post ankle surgery. 3. Status post multiple toe amputations. ANTIBIOTICS: 1. Vancomycin. 2. Clindamycin. ALLERGIES: Patient has a recorded allergy to penicillin, which was from his youth when he developed hives. Review of records from [facility] [place] shows that he tolerated cefepime on a prior a dmission. FAMILY HISTORY: Reviewed but noncontributory. SOCIAL HISTORY: Patient is a remote smoker. No alcohol use. No drug use. He is . REVIEW OF SYSTEMS: Other than that detailed above in History of Present Illness, comprehensive 10-sy stem review is negative. PHYSICAL EXAMINATION: VITAL SIGNS: Temperature maximum 38.5, temperature current 36.6, heart rate i s 64, respiratory rate is 20, blood pressure is 158/68. GENERAL: Patient is a well-formed, well-nou rished older male in no acute distress. He is not toxic in appearance. He is alert and oriented x3. Slight cognitive slowing. HEENT: Normocephalic for age. Atraumatic. No scleral icterus. No ora l lesion or drainage from the nares. Eyes: Lids and conjunctivae are within normal limits. Pupils are equal and round bilaterally. NECK: Supple. No meningismus. LUNGS: Clear to auscultation bila terally with good effort. HEART: Regular rate and rhythm. No significant peripheral edema. ABDOME N: Soft, nontender. No masses. SKIN: Warm and dry to the touch. No rash noted. Patient does hav e multiple distal tip toe ulcerations, most notably right 2nd toe. NEURO: Cranial nerves 2 through 12 seem to be intact. Peripheral sensation seems intact in extremities. LABORATORY DATA: Patient has a CBC dated 10/17/18. It shows a white blood cell count of 13.9, hemog lobin of 11.5, hematocrit of 33.5, platelet count of 142. Differential is left shifted with 89% segm ented neutrophils. Serum chemistries on 10/17/18, show sodium of 135, potassium 4.3, chloride of 109 , bicarbonate of 21, BUN of 40, and creatinine of 2.6. Urinalysis on 10/16/18, shows 1-3 red cells a nd 1-3 white cells per high-power field. MICROBIOLOGIC DATA: Patient has blood cultures dated 10/16/18. Two out of two sets are growing gram -positive cocci in chains identified by PCR as group A strep. RADIOLOGIC DATA: Patient has a right foot x-ray dated 10/16/18, which shows erosion of the distal ph alanx of the 2nd toe suggestive of osteomyelitis. ASSESSMENT: Sepsis secondary to group A strep bacteremia. Most likely source is one of his distal e xtremity ulcerations. Did contact Dr. Huggins in Podiatry, who is his physiotherapist's assistant, whom he has quentin juarez scheduled procedure to take care of these ulcers by way of amputating the toes at the end of thi s month. I did request that he come and see him tomorrow for perhaps advancing that planned procedur e. In the meantime, we will not give him any more vancomycin secondary to his underlying kidney dise ase. We will instead use cefazolin 2 g intravenous every 12 hours adjusted for renal insufficiency. Clindamycin will continue for now. Likely discontinue once continues to be stable overnight. PLAN: 1. Continue clindamycin. 2. Discontinue vancomycin. 3. Start cefazolin 2 g IV q.12 hours. 4. Follow his clinical course throughout the night. /[id number]/MODL
[2018-10-17] MEDS ORDERED: INSULIN GLARGINE 100 UNITS/ML UNIT SC SCH (21:00)
[2018-10-18] MEDS: CLINDAMYCIN 900 MG/DEXTROSE 50 ML IV SCH ×2 (05:27→15:03)
[2018-10-18] MEDS: HEPARIN 5,000 UNIT/0.5 ML INJ SC SCH ×3 (05:32→23:28)
--- NOTE | 2018-10-18 09:04 | SOAPPROG ---
SOAP Progress Note Assessment/Plan: Assessment: Bacteremia due to right foot, 2nd toe, cellulitis possible osteomyelitis, 2nd distal phalanx Plan: I will schedule bilateral 2nd toe amputations while patient is in-house, as opposed to as out-patient as originally planned. NPO tonight. OR time for TBD. 10/18/18 09:01 Subjective: Patient feeling well. No complaints. Denies f/c/n/v. Seen at bedside this am. Objective: Vital Signs Temp Pulse Resp BP Pulse Ox 36.6 C 63 20 154/68 H 95 10/18/18 08:00 10/18/18 08:00 10/18/18 08:00 10/18/18 08:00 10/18/18 08:00 Laboratory Results 10/17/18 05:20 10/17/18 05:20 10/17/18 10/18/18 10/19/18 05:59 05:59 05:59 Intake Total 2341 1800 Output Total 400 200 580 Balance 1941 1600 -580 PT 13.2 SEC (12.0-15.0) 10/16/18 18:40 INR 0.98 (0.83-1.16) 10/16/18 18:40 right 2nd toe with contracture and mild erythema and edema; no ascending cellulitis; no open wound; left 2nd toe with marked PF contracture at 2nd PIP - Time Spent With Patient Time Spent With Patient: 30 min - Pending Discharge Pending Discharge Within 24 Hours: No Pending Discharge Within 48 Hours: Yes Pending Discharge Date: 10/20/18 Pending Discharge Time: 11:00 ICD10 Worksheet Patient Problems: Problems Problem Status Onset Chills Acute Diabetic foot ulcer Acute Fever Acute Sepsis Acute COPD (chronic obstructive pulmonary disease) Acute Cardiomyopathy, dilated Acute DM2 (diabetes mellitus, type 2) Acute Debility Acute
[2018-10-18] MEDS: OMEGA-3 FATTY ACIDS 1,000 MG CAP PO SCH (09:27)
[2018-10-18] MEDS: LOSARTAN POTASSIUM 25 MG TAB PO SCH (09:27)
[2018-10-18] MEDS: RANOLAZINE 500 MG TAB.ER PO SCH ×2 (09:27→21:08)
[2018-10-18] MEDS: CETIRIZINE 10 MG TAB PO SCH (09:28)
[2018-10-18] MEDS: ALLOPURINOL 100 MG TAB PO SCH (09:28)
[2018-10-18] MEDS: CARVEDILOL 25 MG TAB PO SCH ×2 (09:28→21:08)
[2018-10-18] MEDS: FERROUS SULFATE 325 MG TAB PO SCH (09:29)
[2018-10-18] MEDS: INSULIN LISPRO 100 UNIT/ML SC SCH ×3 (09:29→17:34)
[2018-10-18] MEDS: ceFAZolin 2 GM/DEXTROSE 100 ML IV SCH ×2 (09:29→21:04)
[2018-10-18] MEDS: CHOLECALCIFEROL VIT D3 2,000 UNITS TAB/CAP PO SCH ×2 (09:29→21:10)
[2018-10-18] MEDS: MAGNESIUM OXIDE 400 MG TAB PO SCH (09:29)
[2018-10-18] MEDS: INSULIN GLARGINE 100 UNITS/ML UNIT SC SCH ×2 (09:30→21:02)
--- NOTE | 2018-10-18 11:56 | HOSPPROG ---
Hospitalist Progress Note Assessment/Plan: # severe sepsis d/t GAS bacteremia with source R toe - cont ancef, clinda - plan amputaton tomorrow by dr verduzco # CKD - at baseline - outpatient w/u for renal xplant # CAD - previous stress last year with inferior infarct and serafin-infarct ischemia - planned outpatient stress this week - will ask for cards eval # dilated cardiomyopathy and recovered EF - cont coreg, losartan # DM2 - cont glargine 45/36 and SSI # htn - cont coreg, hydral, losartan # HLD - lipitor # hx anoxic brain injury - well compensated # LBBB # ZIYAD/CPAP # COPD - inhalers Subjective: no complaints today; resting comfortable; no exertional CP or MARR Objective: Vital Signs Temp Pulse Resp BP Pulse Ox 36.6 C 63 20 154/68 H 95 10/18/18 08:00 10/18/18 09:28 10/18/18 08:00 10/18/18 09:28 10/18/18 08:00 Laboratory Results 10/17/18 05:20 10/17/18 05:20 10/17/18 10/18/18 10/19/18 05:59 05:59 05:59 Intake Total 2341 1800 Output Total 400 200 580 Balance 1941 1600 -580 PT 13.2 SEC (12.0-15.0) 10/16/18 18:40 INR 0.98 (0.83-1.16) 10/16/18 18:40 high risk with CAD and CKD needing surgery ni setting of bacteremia - Physical Exam Constitutional: no apparent distress, appears nourished Cardiovascular: regular rate and rhythym, no murmur, rub, or gallop Respiratory: no respiratory distress, no rales or rhonchi, clear to auscultation Gastrointestinal: normoactive bowel sounds, soft, non-tender abdomen, no palpable masses ICD10 Worksheet Patient Problems: Problems Problem Status Onset Debility Acute Cardiomyopathy, dilated Acute COPD (chronic obstructive pulmonary disease) Acute DM2 (diabetes mellitus, type 2) Acute Sepsis Acute Diabetic foot ulcer Acute Fever Acute Chills Acute
--- NOTE | 2018-10-18 12:33 | ASMTCMCOM ---
CM Note CM Note Notes: Patient plan of care reviewed in interdisciplinary rounds. He is to undergo amputation of infected second toes bilaterally tomorrow. Will need termite control servicer IV antibiotics, likely PT and RN as well. Referral to [facility] via [employer]. CM to follow for needs. Plan: Home with IV infusion services and C when medically cleared for discharge. Date Signed: 10/18/2018 12:32 PM Electronically Signed By:Guillermina Leone RN
--- NOTE | 2018-10-18 15:53 | PCMIDPN ---
Assessment/Plan: Assessment/Plan: * Sepsis due to group A streptococcal bacteremia associated with right 2nd toe ulceration/osteomyelitis/skin and soft tissue infection: Clinically improved with antibiotic therapy. Given improvement, will discontinue clindamycin treat with cefazolin monotherapy. Podiatry has evaluated with plans for amputation of affected toes tomorrow. This should be definitive in terms of resolution of osteomyelitis/chronic ulceration. Patient is tolerating cefazolin well in the setting of prior penicillin allergy. Cefazolin is dose adjusted for impaired creatinine clearance. 10/18/18 15:49 10/18/18 15:52 Subjective: Overall patient feels better. Plans for amputation of both 2nd toe affected regions tomorrow. Also complains of dry cough. Objective: Vital Signs Temp Pulse Resp BP Pulse Ox 36.7 C 62 22 H 153/65 H 97 10/18/18 12:21 10/18/18 12:21 10/18/18 12:21 10/18/18 12:21 10/18/18 12:21 Laboratory Results 10/17/18 05:20 10/17/18 05:20 10/17/18 10/18/18 10/19/18 05:59 05:59 05:59 Intake Total 2341 1800 Output Total 400 200 760 Balance 1941 1600 -760 Cefazolin # 2 Clindamycin # 2 Blood cultures 2/2 group A Streptococcus - Physical Exam General Appearance: alert, no apparent distress, non-toxic EENT: No scleral icterus, No conjunctival petechiae Respiratory: lungs clear Cardiac/Chest: regular rate, rhythm Extremities: inflammation (Right 2nd toe with ulceration over tip of hammertoe deformity; toe is edematous with erythema; ulceration over tip of left 2nd toe with hammertoe deformity without significant erythema) ICD10 Worksheet Patient Problems: Problems Problem Status Onset Chills Acute Diabetic foot ulcer Acute Fever Acute Sepsis Acute COPD (chronic obstructive pulmonary disease) Acute Cardiomyopathy, dilated Acute DM2 (diabetes mellitus, type 2) Acute Debility Acute
--- NOTE | 2018-10-18 16:49 | PDCARCONS ---
Cardiology Consult Reason for Consult: Preoperative clearance Chief Complaint: no complaints Requesting Physician: Elliott History of Present Illness: 73-year-old male well known to our service admitted with group a streptococcal bacteremia secondary to a 2nd toe ulceration with associated osteomyelitis and cellulitis awaiting amputation. The present time from a cardiac point of view he denies chest pain, shortness of breath. He has had no PND orthopnea. He has had no palpitations syncope or near syncope. When he was feeling well he was able to ambulate without chest pain. Patient is awaiting a renal transplantation evaluation. Recently he was seen by my partner in the clinic on October 04. At that time his ejection fraction was now 52% by echocardiography with aggressive medical therapy. His initial presentation was with heart failure in 1993. He has chronic left bundle branch block. He had a cardiac catheterization in 2013 which showed mild coronary artery disease. His right ventricle has been borderline in function in the setting of severe obstructive sleep apnea. He has known renal insufficiency with a creatinine of 2.7. This is in the setting of hypertension type 2 diabetes. History Information - Allergies/Home Medication List Allergies/Adverse Reactions: amlodipine Allergy (Verified 10/16/18 18:21) Swelling/neck,face,throat lisinopril Allergy (Verified 10/16/18 18:21) Swelling/neck,face,throat Penicillins Allergy (Verified 10/16/18 18:21) Hives Home Medications: Aspirin EC [Aspirin EC 81 mg (*)] 81 mg PO DAILY 07/16/17 [Last Taken 10/16/18 10:00] Insulin Aspart [novoLOG] 20 - 35 unit SC QID 07/16/17 [Last Taken 10/16/18] Allopurinol [Allopurinol 100 MG (*)] 100 mg PO DAILY 10/16/18 [Last Taken 10:00] Atorvastatin Calcium 80 mg PO HS 10/16/18 [Last Taken 10/15/18] Calcium Carbonate [Tums 500MG (*)] 1,000 mg PO BID@1800,2100 10/16/18 [Last Taken 10/15/18] Carvedilol [Coreg (*)] 12.5 mg PO BID 10/16/18 [Last Taken 10/16/18 10:00] Cholecalciferol Vit D3 [Vitamin D3 2000 units tab (OTC)] 2,000 units PO BID 11/02 [Last Taken 10/16/18 10:00] Docusate Sodium [Colace] 100 mg PO HS 10/16/18 [Last Taken 10/15/18] Ferrous Sulfate [Ferrous Sulf 325 MG (*)] 325 mg PO DAILY 10/16/18 [Last Taken 10/16/18 10:00] Herbals/Supplements -Info Only 1 ea PO AD 10/16/18 [Last Taken Unknown] Insulin Glargine [Lantus Syringe] 36 units SC HS 10/16/18 [Last Taken 10/15/18] Insulin Glargine [Lantus Syringe] 45 units SC DAILY 10/16/18 [Last Taken 10:00] Loratadine [Claritin 10 mg] 10 mg PO DAILY 10/16/18 [Last Taken 10/16/18 10:00] Losartan Potassium [Cozaar 25 mg (*)] 25 mg PO DAILY 10/16/18 [Last Taken 10:00] Magnesium Oxide [Magnesium Oxide 400 mg (*)] 400 mg PO DAILY 10/16/18 [Last Taken 10/16/18 10:00] [place]-3 Fatty Acids [Fish Oil 1000 mg (*)] 1,000 mg PO DAILY 10/16/18 [Last Taken 10/16/18 10:00] hydrALAZINE [Apresoline 50 mg (*)] 50 mg PO BID 10/16/18 [Last Taken Unknown] I have personally reviewed and updated: family history, medical history, social history, surgical history Past Medical History: - Past Medical History coronary artery disease, diabetes type 2, hypertension, hyperlipidemia - Family History Positive for: non-pertinent - Social History Smoking Status: Former smoker Alcohol Use: Rarely Drug Use: None Physical Exam Physical Exam: Temp Pulse Resp BP Pulse Ox 36.8 C 65 20 172/79 H 99 10/18/18 16:30 10/18/18 16:30 10/18/18 16:30 10/18/18 16:30 10/18/18 16:30 O2 (L/minute) 1 Constitutional: no apparent distress, not in pain Eyes: anicteric sclera Ears, Nose, Mouth, Throat: moist mucous membranes Cardiovascular: regular rate and rhythym, No JVD Peripheral Pulses: 1+: femoral (R), femoral (L) Respiratory: no respiratory distress Gastrointestinal: soft, non-tender abdomen Skin: warm, No rash Neurologic: AAOx3, No facial droop Psychiatric: interacting appropriately Lymph, Heme, Immunologic: no cervical LAD, no supraclavicular LAD Lab and Imaging 10/17/18 05:20 10/17/18 05:20 WBC 13.92 10^3/uL (3.80-9.50) H 10/17/18 05:20 RBC 3.51 10^6/uL (4.40-6.38) L 10/17/18 05:20 Hgb 11.5 g/dL (13.7-17.5) L 10/17/18 05:20 POC Hgb 13.6 gm/dL (13.7-17.5) L 10/16/18 18:45 Hct 33.5 % (40.0-51.0) L 10/17/18 05:20 POC Hct 40 % (40-51) 10/16/18 18:45 MCV 95.4 fL (81.5-99.8) 10/17/18 05:20 MCH 32.8 pg (27.9-34.1) 10/17/18 05:20 MCHC 34.3 g/dL (32.4-36.7) 10/17/18 05:20 RDW 12.7 % (11.5-15.2) 10/17/18 05:20 Plt Count 142 10^3/uL (150-400) L 10/17/18 05:20 MPV 9.5 fL (8.7-11.7) 10/17/18 05:20 Neut % (Auto) 89.6 % (39.3-74.2) H 10/17/18 05:20 Lymph % (Auto) 3.3 % (15.0-45.0) L 10/17/18 05:20 George % (Auto) 6.6 % (4.5-13.0) 10/17/18 05:20 Eos % (Auto) 0.0 % (0.6-7.6) L 10/17/18 05:20 Baso % (Auto) 0.1 % (0.3-1.7) L 10/17/18 05:20 Nucleat RBC Rel Count 0.0 % (0.0-0.2) 10/17/18 05:20 Absolute Neuts (auto) 12.47 10^3/uL (1.70-6.50) H 10/17/18 05:20 Absolute Lymphs (auto) 0.46 10^3/uL (1.00-3.00) L 10/17/18 05:20 Absolute Monos (auto) 0.92 10^3/uL (0.30-0.80) H 10/17/18 05:20 Absolute Eos (auto) 0.00 10^3/uL (0.03-0.40) L 10/17/18 05:20 Absolute Basos (auto) 0.01 10^3/uL (0.02-0.10) L 10/17/18 05:20 Absolute Nucleated RBC 0.00 10^3/uL (0-0.01) 10/17/18 05:20 Immature Gran % 0.4 % (0.0-1.1) 10/17/18 05:20 Immature Gran # 0.06 10^3/uL (0.00-0.10) 10/17/18 05:20 RBC/WBC/PLT Morphology TNP 10/17/18 05:20 Platelet Estimate TNP 10/17/18 05:20 PT 13.2 SEC (12.0-15.0) 10/16/18 18:40 INR 0.98 (0.83-1.16) 10/16/18 18:40 APTT 28.2 SEC (23.0-38.0) 10/16/18 18:40 VBG Lactic Acid 0.9 mmol/L (0.7-2.1) 10/17/18 00:15 POC Sodium 140 mEq/L (135-145) 10/16/18 18:45 Sodium 135 mEq/L (135-145) 10/17/18 05:20 POC Potassium 4.7 mEq/L (3.3-5.0) 10/16/18 18:45 Potassium 4.3 mEq/L (3.5-5.2) 10/17/18 05:20 POC Chloride 106 mEq/L (97-110) 10/16/18 18:45 Chloride 109 mEq/L (97-110) 10/17/18 05:20 Carbon Dioxide 21 mEq/l (22-31) L 10/17/18 05:20 POC Total CO2 21 mEq/L (22-31) L 10/16/18 18:45 Anion Gap 5 mEq/L (6-14) L 10/17/18 05:20 POC BUN 39 mg/dL (7-23) H 10/16/18 18:45 BUN 40 mg/dL (7-23) H 10/17/18 05:20 Creatinine 2.6 mg/dL (0.7-1.3) H 10/17/18 05:20 POC Creatinine 3.1 mg/dL (0.7-1.3) H 10/16/18 18:45 Estimated GFR 24 10/17/18 05:20 Glucose 208 mg/dL (70-100) H 10/17/18 05:20 POC Glucose 175 mg/dL (70-100) H 10/18/18 12:27 Calcium 7.5 mg/dL (8.5-10.4) L 10/17/18 05:20 Total Bilirubin 0.7 mg/dL (0.1-1.4) 10/16/18 18:40 Conjugated Bilirubin 0.2 mg/dL (0.0-0.5) 10/16/18 18:40 Unconjugated Bilirubin 0.5 mg/dL (0.0-1.1) 10/16/18 18:40 AST 20 IU/L (17-59) 10/16/18 18:40 ALT 26 IU/L (21-72) 10/16/18 18:40 Alkaline Phosphatase 90 IU/L (38-126) 10/16/18 18:40 Troponin I 0.032 ng/mL (0.000-0.034) 10/16/18 18:59 NT-Pro-B Natriuret Pep 1950 pg/mL (0-125) H 10/16/18 18:40 Total Protein 6.6 g/dL (6.3-8.2) 10/16/18 18:40 Albumin 4.0 g/dL (3.5-5.0) 10/16/18 18:40 Lipase 467 IU/L (23-300) H 10/16/18 18:40 Urine Color YELLOW 10/16/18 18:40 Urine Appearance CLEAR 10/16/18 18:40 Urine pH 6.0 (5.0-7.5) 10/16/18 18:40 Ur Specific [place] 1.017 (1.002-1.030) 10/16/18 18:40 Urine Protein 3+ (NEGATIVE) H 10/16/18 18:40 Urine Ketones NEGATIVE (NEGATIVE) 10/16/18 18:40 Urine Blood NEGATIVE (NEGATIVE) 10/16/18 18:40 Urine Nitrate NEGATIVE (NEGATIVE) 10/16/18 18:40 Urine Bilirubin NEGATIVE (NEGATIVE) 10/16/18 18:40 Urine Urobilinogen NEGATIVE EU (0.2-1.0) 10/16/18 18:40 Ur Leukocyte Esterase NEGATIVE (NEGATIVE) 10/16/18 18:40 Urine RBC 1-3 /hpf (0-3) 10/16/18 18:40 Urine WBC 1-3 /hpf (0-3) 10/16/18 18:40 Ur Epithelial Cells TRACE /lpf (NONE-1+) 10/16/18 18:40 Urine Bacteria TRACE /hpf (NONE SEEN) H 10/16/18 18:40 Hyaline Casts 1-5 /lpf (0-1) 10/16/18 18:40 Ur Culture Indicated? NOT INDICATED (NI) 10/16/18 18:40 Urine Glucose 1+ (NEGATIVE) H 10/16/18 18:40 Chest X-ray Interpretation: other (Chest x-ray reveals cardiomegaly.) EKG additional interpertation: EKG reveals sinus rhythm with left bundle branch block. A/P Assessment: Problem list: 1. Preoperative cardiovascular assessment 2. Nonobstructive coronary disease by angiography in 2013 3. History of nonischemic dilated cardiomyopathy ejection fraction now 52%. At low 35% in December of 2017. 4. Chronic left bundle branch block 5. Obstructive sleep apnea with mildly reduced right ventricular function. 6. Hypertension 7. Hyperlipidemia 8. Type 2 diabetes 9. Renal insufficiency awaiting renal transplantation Based on clinical history, physical examination at this point the patient is at intermediate risk for cardiovascular complications of noncardiac surgery. He is stable without angina or heart failure symptomatology. He is in regular rhythm. Would recommend proceeding with toe amputation without further cardiovascular testing/treatment. Would continue current medical therapy with observation. Risk for surgery would also include is renal insufficiency, obstructive sleep apnea. This was discussed with the patient his family. The patient is supposed to have a stress portion of a nuclear test in preparation for renal transportation. This should be done once he has healed from his surgical procedure. Will follow him clinically during this hospitalization. Thank you for allowing us to participate in his care. Review of Systems Review of Systems: - Review of Systems Constitutional: denies: chills, fever EENTM: no symptoms reported Respiratory: no symptoms reported Cardiac: no symptoms reported Gastrointestinal/Abdominal: no symptoms reported Genitourinary: no symptoms Skin: no symptoms Neurological: no symptoms
[2018-10-18] MEDS: CALCIUM CARBONATE 500 MG CHEWABLE TAB PO SCH ×2 (17:57→21:07)
[2018-10-18] MEDS: ATORVASTATIN CALCIUM 40 MG TAB PO SCH (21:08)
[2018-10-18] MEDS: DOCUSATE SODIUM 100 MG CAP PO SCH (21:10)
[2018-10-19] MEDS: HEPARIN 5,000 UNIT/0.5 ML INJ SC SCH ×3 (04:43→21:33)
[2018-10-19 05:15] LABS: PLATELET COUNT 134 10^3/uL (150-400)
[2018-10-19 06:19] LABS: INR 1.03 (0.83-1.16); PROTIME(PATIENT) 13.7 SEC (12.0-15.0)
[2018-10-19] MEDS ORDERED: NS 1,000 ML IV ONE (07:34)
[2018-10-19] MEDS ORDERED: LIDOCAINE 2% 5 ML SDV ONE (08:01)
[2018-10-19] MEDS ORDERED: BUPIVACAINE 0.5% 30 ML SDV ONE (08:01)
[2018-10-19] MEDS: INSULIN LISPRO 100 UNIT/ML SC SCH ×3 (08:07→18:23)
[2018-10-19] MEDS ORDERED: MIDAZOLAM 2 MG/2 ML VIAL IVP ONE (08:14)
--- NOTE | 2018-10-19 08:14 | PDANEPAE ---
ANE Past Medical History - Cardiovascular History Hx Hypertension: Yes Hx Arrhythmias: No Hx Chest Pain: No Hx Coronary Artery / Peripheral Vascular Disease: Yes Hx CHF / Valvular Disease: No Hx Palpitations: No Cardiovascular History Comment: LBBB. CARDIOMYOPATHY. SEPTIC SHOCK 02/2015 - Pulmonary History Hx COPD: Yes Hx Asthma/Reactive Airway Disease: No Hx Recent Upper Respiratory Infection: No Hx Oxygen in Use at Home: Yes O2 in Use at Home (L/minute): 2 Hx Sleep Apnea: Yes Sleep Apnea Screening Result - Last Documented: Positive Pulmonary History Comment: ZIYAD USES C-PAP. INSTRUCTED TO BRING DOS - Neurologic History Hx Cerebrovascular Accident: No Hx Seizures: No Hx Dementia: No Neurologic History Comment: BRAIN INJURY RESULTING IN HYPOXEMIA AND RESIDUAL COGNITIVE ISSUES. 02/2015 - Endocrine History Hx Diabetes: Yes Endocrine History Comment: IDDM - Renal History Hx Renal Disorders: Yes Renal History Comment: ACUTE RENAL FAILURE 2014. NOW WITH CHRONIC KIDNEY DX - Liver History Hx Hepatic Disorders: No - Neurological & Psychiatric Hx Hx Neurological and Psychiatric Disorders: No - Cancer History Hx Cancer: Yes Cancer History Comment: SKIN - Congenital Disorder History Hx Congenital Disorders: No - GI History Hx Gastrointestinal Disorders: No - Other Health History Other Health History: GOUT. NEUROPATHY. DIFFICULTY WALKING. NON HEALING RT FOOT ULCER. ANEMIA - Chronic Pain History Chronic Pain: Yes (RT FOOT) - Surgical History Prior Surgeries: RT BUNION/HAMMERTOE REPAIR HARDWARE 11/27/2015. ANKLE REPAIR. LT PARATOID TUMOR. DEBRIDEMENT RT GREAT TOE 2014. TONSILLECTOMY ANE Review of Systems Review of Systems: ANE Patient History - Allergies Allergies/Adverse Reactions: amlodipine Allergy (Verified 10/16/18 18:21) Swelling/neck,face,throat lisinopril Allergy (Verified 10/16/18 18:21) Swelling/neck,face,throat Penicillins Allergy (Verified 10/16/18 18:21) Hives - Home Medications Home Medications: Aspirin EC [Aspirin EC 81 mg (*)] 81 mg PO DAILY 07/16/17 [Last Taken 10/16/18 10:00] Insulin Aspart [novoLOG] 20 - 35 unit SC QID 07/16/17 [Last Taken 10/16/18] Allopurinol [Allopurinol 100 MG (*)] 100 mg PO DAILY 10/16/18 [Last Taken 10:00] Atorvastatin Calcium 80 mg PO HS 10/16/18 [Last Taken 10/15/18] Calcium Carbonate [Tums 500MG (*)] 1,000 mg PO BID@1800,2100 10/16/18 [Last Taken 10/15/18] Carvedilol [Coreg (*)] 12.5 mg PO BID 10/16/18 [Last Taken 10/16/18 10:00] Cholecalciferol Vit D3 [Vitamin D3 2000 units tab (OTC)] 2,000 units PO BID 11/02 [Last Taken 10/16/18 10:00] Docusate Sodium [Colace] 100 mg PO HS 10/16/18 [Last Taken 10/15/18] Ferrous Sulfate [Ferrous Sulf 325 MG (*)] 325 mg PO DAILY 10/16/18 [Last Taken 10/16/18 10:00] Herbals/Supplements -Info Only 1 ea PO AD 10/16/18 [Last Taken Unknown] Insulin Glargine [Lantus Syringe] 36 units SC HS 10/16/18 [Last Taken 10/15/18] Insulin Glargine [Lantus Syringe] 45 units SC DAILY 10/16/18 [Last Taken 10:00] Loratadine [Claritin 10 mg] 10 mg PO DAILY 10/16/18 [Last Taken 10/16/18 10:00] Losartan Potassium [Cozaar 25 mg (*)] 25 mg PO DAILY 10/16/18 [Last Taken 10:00] Magnesium Oxide [Magnesium Oxide 400 mg (*)] 400 mg PO DAILY 10/16/18 [Last Taken 10/16/18 10:00] [place]-3 Fatty Acids [Fish Oil 1000 mg (*)] 1,000 mg PO DAILY 10/16/18 [Last Taken 10/16/18 10:00] hydrALAZINE [Apresoline 50 mg (*)] 50 mg PO BID 10/16/18 [Last Taken Unknown] - NPO status NPO Since - Liquids (Date): 10/19/18 NPO Since - Liquids (Time): 00:00 NPO Since - Solids (Date): 10/19/18 NPO Since - Solids (Time): 00:00 - Smoking Hx Smoking Status: Former smoker - Alcohol Use Alcohol Use: Rarely ANE Labs/Vital Signs - Labs Result Diagrams: 10/19/18 04:20 02/05/19 04:20 - Vital Signs Blood Pressure: 185/88 Heart Rate: 80 Respiratory Rate: 18 O2 Sat (%): 92 Height: 204.22 cm Weight: 127.006 kg ANE Physical Exam - Airway Neck exam: FROM Mallampati Score: Class 1 Mouth exam: normal dental/mouth exam - Pulmonary Pulmonary: no respiratory distress - Cardiovascular Cardiovascular: regular rate and rhythym - ASA Status ASA Status: III ANE Anesthesia Plan Anesthesia Plan: GA w LMA, GA with mask, MAC
[2018-10-19] MEDS ORDERED: MIDAZOLAM 2 MG/2 ML VIAL ONE (08:23)
[2018-10-19] MEDS ORDERED: fentaNYL 100 MCG/2 ML INJ ONE (08:26)
[2018-10-19] MEDS ORDERED: LIDOCAINE 2% 2 ML INJ ONE (08:26)
[2018-10-19] MEDS ORDERED: PROPOFOL/EMULSION 500 MG/50 ML BOTTLE IV ONE (08:27)
[2018-10-19] MEDS ORDERED: PROPOFOL 200 MG/20 ML VIAL ONE (09:17)
--- NOTE | 2018-10-19 09:33 | POSTOPPROG ---
Post Op Note Date of Operation: 10/19/18 Surgeon: Sivakumar Huggins Events Traffic Controller: none Anesthesiologist: Nadya Pre-op Diagnosis: osteomyelitis, 2nd toe, right Post-op Diagnosis: hammertoes 2-4, bilateral; osteomyelitis, 2nd toe, right Indication: infection Procedure: flexor tenotomies 3,4 bilateral; partial amps 2nd toes, bilateral Inf/Abcess present in the surg proc area at time of surgery?: Yes Depth: Organ Space EBL: Minimal Total fluids administered: per anesth Complications: none
[2018-10-19] MEDS ORDERED: ONDANSETRON 4 MG/2 ML VIAL IVP PRN (09:42)
[2018-10-19] MEDS ORDERED: fentaNYL 100 MCG/2 ML INJ IVP PRN (09:42)
[2018-10-19] MEDS ORDERED: NALOXONE HCL 0.4 MG/ML INJ IVP PRN (09:42)
--- NOTE | 2018-10-19 09:43 | POSTANESTH ---
Post Anesthetic Evaluation Cardiovascular Status: Similar to Pre-Op Cond Respiratory Status: Similar to Pre-op Cond. Level of Consciousness/Mental Status: Can Participate in Eval Pain Control: Adequate, Prn Tx Ordered Nausea/Vomiting Control: Adequate, Prn Tx Ordered Complications Possibly Related to Anesthesia: None Noted
[2018-10-19] MEDS: ceFAZolin 2 GM/DEXTROSE 100 ML IV SCH ×2 (10:35→20:20)
[2018-10-19] MEDS: OMEGA-3 FATTY ACIDS 1,000 MG CAP PO SCH (10:37)
[2018-10-19] MEDS: CARVEDILOL 25 MG TAB PO SCH ×2 (10:38→20:21)
[2018-10-19] MEDS: CETIRIZINE 10 MG TAB PO SCH (10:40)
[2018-10-19] MEDS: LOSARTAN POTASSIUM 25 MG TAB PO SCH (10:40)
[2018-10-19] MEDS: ALLOPURINOL 100 MG TAB PO SCH (10:40)
[2018-10-19] MEDS: MAGNESIUM OXIDE 400 MG TAB PO SCH (10:40)
[2018-10-19] MEDS: CHOLECALCIFEROL VIT D3 2,000 UNITS TAB/CAP PO SCH ×2 (10:41→20:22)
[2018-10-19] MEDS: FERROUS SULFATE 325 MG TAB PO SCH (10:41)
[2018-10-19] MEDS: NS 1,000 ML IV SCH (10:42)
[2018-10-19] MEDS: INSULIN GLARGINE 100 UNITS/ML UNIT SC SCH ×2 (10:42→21:35)
[2018-10-19] MEDS: RANOLAZINE 500 MG TAB.ER PO SCH ×2 (10:42→20:20)
--- NOTE | 2018-10-19 14:06 | PCMIDPN ---
Assessment/Plan: Assessment # Group a strep bacteremia # Right 2nd toe ulceration/osteomyelitis/skin and soft tissue infection, s/p bilateral 2nd toe amputation as both were hammertoes and could lead to future rubbing # chronic renal insufficiency, creatinine clearance =40 Recommendations 1. Continue IV cefazolin, renal dosing ok 2. duration 10-14 days of antibiotics 3. repeat blood cultures meds, Abx #3 cefazolin 2gm IV q12h, #3 micro 10/16 Blood cx 2/2 GAS, adorno-S Subjective: no c/o went OR this AM Objective: Vital Signs Temp Pulse Resp BP Pulse Ox 36.4 C 73 24 H 185/82 H 97 10/19/18 13:28 10/19/18 13:28 10/19/18 13:28 10/19/18 13:28 10/19/18 13:28 Laboratory Results 10/19/18 04:20 10/19/18 04:20 10/18/18 10/19/18 10/20/18 05:59 05:59 05:59 Intake Total 1800 1383 350 Output Total 200 1510 260 Balance 1600 -127 90 - Physical Exam General Appearance: alert, no apparent distress Respiratory: other (barrel chested decreased bs throughout), No respiratory distress, No accessory muscle use Cardiac/Chest: regular rate, rhythm Extremities: other (dressing in place B feet) Skin: No rash Neuro/Psych: alert, normal mood/affect, oriented x 3 - Time Spent With Patient Time Spent with Patient: greater than 25 minutes Time Spent with Patient: Greater than 25 minutes spent on this patients care, greater than 50% of time spent counseling, educating, and coordinating care regarding the above mentioned plan. ICD10 Worksheet Patient Problems: Problems Problem Status Onset Chills Acute Diabetic foot ulcer Acute Fever Acute Sepsis Acute COPD (chronic obstructive pulmonary disease) Acute Cardiomyopathy, dilated Acute DM2 (diabetes mellitus, type 2) Acute Debility Acute
--- NOTE | 2018-10-19 15:48 | ASMTCMCOM ---
CM Note CM Note Notes: Patient plan of care reviewed. Met with his Abigail who is primarily his caregiver after he suffered sepsis and cardiac arrest about 3 years ago. [facility] She is very concerned about antibiotic therapy and acquisition of medications. She is to call me with the name of the previous HHC agency. It is anticipated he will need nursing care in addition to PT. Call placed to [facility] with 's concerns. CM to follow. Plan: Home with Home infusion and HHC when medically stable for discharge, Date Signed: 10/19/2018 03:47 PM Electronically Signed By:Guillermina Leone RN
--- NOTE | 2018-10-19 15:56 | HOSPPROG ---
Hospitalist Progress Note Assessment/Plan: 73 yo m w dm and ckd here w sepsis, osteomyelitis severe sepsis d/t GAS bacteremia with source R toe - cont ancef, clinda - s/p amputaton today by dr verduzco septic physiology has resolved CKD - at baseline - outpatient w/u for renal xplant CAD - previous stress last year with inferior infarct and serafin-infarct ischemia - planned outpatient stress this week - appreciate cadiology eval dilated cardiomyopathy and recovered EF - cont coreg, losartan DM2 - cont glargine 45/36 and SSI htn - cont coreg, hydral, losartan high today, follow HLD - lipitor hx anoxic brain injury - well compensated LBBB ZIYAD/CPAP COPD - inhalers proph: sc heparin Subjective: case d/w dr dubose. s/p amputation Objective: Vital Signs Temp Pulse Resp BP Pulse Ox 36.9 C 72 20 173/86 H 97 10/19/18 15:18 10/19/18 15:18 10/19/18 15:18 10/19/18 15:18 10/19/18 15:18 Laboratory Results 10/19/18 04:20 10/19/18 04:20 10/18/18 10/19/18 10/20/18 05:59 05:59 05:59 Intake Total 1800 1383 350 Output Total 200 1510 410 Balance 1600 -127 -60 PT 13.7 SEC (12.0-15.0) 10/19/18 06:05 INR 1.03 (0.83-1.16) 10/19/18 06:05 - Physical Exam Constitutional: no apparent distress, appears nourished Eyes: PERRL, anicteric sclera Ears, Nose, Mouth, Throat: moist mucous membranes, hearing normal Cardiovascular: regular rate and rhythym, no murmur, rub, or gallop Respiratory: no respiratory distress, no rales or rhonchi Gastrointestinal: normoactive bowel sounds, soft, non-tender abdomen Genitourinary: no bladder fullness, No mcdermott in urethra Skin: warm, normal color Musculoskeletal: full muscle strength, other (toes bandaged) Neurologic: AAOx3 ICD10 Worksheet Patient Problems: Problems Problem Status Onset Chills Acute Diabetic foot ulcer Acute Fever Acute Sepsis Acute COPD (chronic obstructive pulmonary disease) Acute Cardiomyopathy, dilated Acute DM2 (diabetes mellitus, type 2) Acute Debility Acute
[2018-10-19] MEDS: CALCIUM CARBONATE 500 MG CHEWABLE TAB PO SCH ×2 (19:22→21:33)
[2018-10-19] MEDS: DOCUSATE SODIUM 100 MG CAP PO SCH (20:21)
[2018-10-19] MEDS: ATORVASTATIN CALCIUM 40 MG TAB PO SCH (20:22)
[2018-10-20] MEDS: HEPARIN 5,000 UNIT/0.5 ML INJ SC SCH ×3 (06:19→21:56)
[2018-10-20] MEDS: INSULIN LISPRO 100 UNIT/ML SC SCH ×3 (08:19→17:31)
--- NOTE | 2018-10-20 09:28 | HOSPPROG ---
Hospitalist Progress Note Assessment/Plan: 73 yo m w dm and ckd here w sepsis, osteomyelitis severe sepsis d/t GAS bacteremia with source R toe - cont ancef - s/p amputaton today by dr verduzco septic physiology has resolved outpt abx per ID CKD - at baseline - outpatient w/u for renal xplant CAD - previous stress last year with inferior infarct and serafin-infarct ischemia - planned outpatient stress this week - appreciate cadiology eval dilated cardiomyopathy and recovered EF - cont coreg, losartan DM2 - cont glargine 45/ and SSI htn - cont coreg, hydral, losartan high today, follow HLD - lipitor hx anoxic brain injury - well compensated LBBB ZIYAD/CPAP COPD - inhalers proph: sc heparin Subjective: adorno sens strep. feels well Objective: Vital Signs Temp Pulse Resp BP Pulse Ox 36.6 C 88 18 166/83 H 91 L 10/20/18 04:41 10/20/18 04:41 10/20/18 05:11 10/20/18 04:41 10/20/18 04:41 Laboratory Results 10/19/18 04:20 10/19/18 04:20 10/19/18 10/20/18 10/21/18 05:59 05:59 05:59 Intake Total 1383 1782 Output Total 1510 735 110 Balance -127 1047 -110 PT 13.7 SEC (12.0-15.0) 10/19/18 06:05 INR 1.03 (0.83-1.16) 10/19/18 06:05 - Physical Exam Constitutional: no apparent distress, appears nourished Eyes: PERRL, anicteric sclera Ears, Nose, Mouth, Throat: moist mucous membranes, hearing normal Cardiovascular: regular rate and rhythym, no murmur, rub, or gallop Respiratory: no respiratory distress, no rales or rhonchi Gastrointestinal: normoactive bowel sounds, soft, non-tender abdomen Genitourinary: no bladder fullness, No mcdermott in urethra Skin: warm, normal color Musculoskeletal: full muscle strength, no muscle tenderness Neurologic: AAOx3 ICD10 Worksheet Patient Problems: Problems Problem Status Onset Chills Acute Diabetic foot ulcer Acute Fever Acute Sepsis Acute COPD (chronic obstructive pulmonary disease) Acute Cardiomyopathy, dilated Acute DM2 (diabetes mellitus, type 2) Acute Debility Acute
[2018-10-20] MEDS: LOSARTAN POTASSIUM 25 MG TAB PO SCH (10:03)
[2018-10-20] MEDS: CARVEDILOL 25 MG TAB PO SCH ×2 (10:03→21:54)
[2018-10-20] MEDS: OMEGA-3 FATTY ACIDS 1,000 MG CAP PO SCH (10:03)
[2018-10-20] MEDS: MAGNESIUM OXIDE 400 MG TAB PO SCH (10:05)
[2018-10-20] MEDS: ALLOPURINOL 100 MG TAB PO SCH (10:05)
[2018-10-20] MEDS: CHOLECALCIFEROL VIT D3 2,000 UNITS TAB/CAP PO SCH ×2 (10:06→21:54)
[2018-10-20] MEDS: FERROUS SULFATE 325 MG TAB PO SCH (10:06)
[2018-10-20] MEDS: CETIRIZINE 10 MG TAB PO SCH (10:06)
[2018-10-20] MEDS: INSULIN GLARGINE 100 UNITS/ML UNIT SC SCH ×2 (10:06→21:56)
[2018-10-20] MEDS: RANOLAZINE 500 MG TAB.ER PO SCH ×2 (10:08→21:59)
[2018-10-20] MEDS: ceFAZolin 2 GM/DEXTROSE 100 ML IV SCH ×2 (10:09→21:44)
--- NOTE | 2018-10-20 13:09 | GOP ---
[f rep st] OPERATIVE REPORT DATE OF OPERATION: 10/19/2018 SURGEON: Sivakumar Huggins DPM SOC ANALYST: None. ANESTHESIA: IV sedation. PREOPERATIVE DIAGNOSIS: 1. Osteomyelitis of the right 2nd toe. 2. A hammertoe of the 2nd left toe. 3. Hammertoe deformities 2 through 4 bilateral feet. POSTOPERATIVE DIAGNOSIS: PROCEDURE PERFORMED: 1. Bilateral 2nd toe partial amputation. 2. Bilateral percutaneous flexor tenotomies of digits 3 and 4 bilateral feet. FINDINGS: ESTIMATED BLOOD LOSS: Minimal. DESCRIPTION OF PROCEDURE: Under mild sedation, the patient was brought into the operating room, plac ed on the operating table in supine position. Following further IV sedation, local anesthesia was ob tained about the patient's forefoot bilaterally consisting of 10 cc of 0.5% Marcaine plain on each fo ot for a total of 20 cc. The feet were then scrubbed, prepped, and draped in the usual aseptic merari r. Sterile pneumatic tourniquets were placed about the patient's well-padded supramalleolar areas. The left foot tourniquet was not inflated, and the procedure started with attention directed toward t he 2nd digit of the left lower extremity where a fishmouth type incision was made just proximal to th e head of the proximal phalanx. The incision was made straight to bone, and the toe was disarticulat ed at the proximal interphalangeal joint. The distal half of the proximal phalanx was resected with a sagittal saw. The area was flushed with copious amounts of sterile normal saline. The wound was c losed in layers with a 3-0 Monocryl closing the soft tissues over the residual end of the proximal ph alanx. The skin was closed with interrupted sutures of 3-0 Prolene. Attention was then directed to the proximal interphalangeal joint where a stab incision was made plan tarly on the 3rd and 4th digits. The tenotomy was completed, and the wounds were flushed with copiou s amounts of sterile normal saline. The wounds were closed with 3-0 Prolene simple interrupted sutur es. Attention was then directed to the right foot with compression of the patient's foot and elevation to exsanguinate the foot. The tourniquet was inflated to 250 mmHg. An identical procedure was done to the right 2nd toe where a fishmouth type incision was made straight to bone. The toe was removed by cutting the proximal phalanx within the mid shaft and passing this from the operative field. The jayant ne of this toe within the proximal phalanx was clean with viable bone tissue. The wound was flushed with copious amounts of sterile normal saline. The soft tissue including the tendon as well as perio steal tissue were closed over the into the bone with 3-0 Monocryl, and the skin was closed with inter rupted sutures of 4-0 Prolene. Attention was then directed to the plantar aspect of the 3rd and 4th digits of the right foot where a n 18-gauge needle was introduced into the plantar aspect of the proximal interphalangeal joint and th e sharp end of the 18-gauge needle was used to tenotomize the flexor tendons of the 3rd and 4th digit s. This relieved the flexion contracture. No closure was needed for the pinhole. The both sided wo unds were dressed with Xeroform and a sterile compressive dressing consisting of 4x4s and Shannan. A C oban wrap was also applied. The tourniquet was dropped on the right lower extremity and a prompt hyp eremic response was noted to all digits all residual digits of the right foot. The patient tolerated the procedure and anesthesia well. He was transferred to the recovery room with vital signs stable and vascular status intact to all digits of the right and left feet. The patient will be discharged back to the Medical-Surgical floor for further medical treatment as well as IV antibiosis for the ashley teremia. PATHOLOGY: None. HEMOSTASIS: None on the left, and 19 minutes on the right. MATERIALS: None. INJECTABLES: 10 cc of 0.5% Marcaine plain on each foot for a total of 20 cc. COMPLICATIONS: None. INDICATIONS FOR PROCEDURES: The patient is a 73-year-old gentleman who presented to the emergency de partment with cellulitis of the right lower extremity as well as early signs of bacteremia. He was a dmitted to the floor. Blood cultures were positive, and he started IV antibiotics. X-rays were take n and erosion of the distal phalanx of the right 2nd toe was noticed, which would be significant with osteomyelitis with the patient's clinical symptoms. The patient is well known to our private practi ce and did have planned hammertoe repairs of bilateral feet as well as the partial amputations of the 2nd digits bilateral feet. With the underlying infection, this has moved up in the schedule. /[id number]/MODL
--- NOTE | 2018-10-20 14:33 | ASMTCMCOM ---
CM Note CM Note Notes: Patient plan of care reviewed in interdisciplinary rounds. 73 year old male with sepsis and is s/p bilateral second toe amputations. ID following. Needs for IV antibiotics versus oral medications. [facility] Likely able to discharge soon, per therapy should be independent. [facility]. Plan: Home with HHC when medically cleared for discharge to home. Date Signed: 10/20/2018 02:32 PM Electronically Signed By:Guillermina Leone RN
--- NOTE | 2018-10-20 15:10 | PCMIDPN ---
Assessment/Plan: Assessment: 73-year-old man with group a strep bacteremia complicating right 2nd toe ulceration and diabetes mellitus. No signs or symptoms of active or ongoing systemic infection. No limitations to oral step-down therapy. Group a strep is an exceedingly low probability to cause endocarditis and does not require further evaluation or prolonged therapy. 1. Group A Strep bloodstream infection secondary to 2. 2. Right 2nd toe ulceration with possible osteomyelitis, amputated 10/19/18 3. Left 2nd toe amputation 10/19/2018 4. Diabetes mellitus type 2 5. CKD Plan: 1. Continue cefazolin 2 g Q 12 while inpatient 2. Prescription printed for linezolid 600 mg p.o. Twice daily times 10 days to be faxed to the pharmacy to see if this medication is covered under [facility] benefits 3. Reiterated potential side effects of antibiotics including antibiotic associated diarrhea, rash, C diff colitis Bartolome Ruiz MD Infectious Diseases 10/20/18 15:42 Subjective: No fever or chills. Denies diarrhea, nausea, rash. Appetite improving. Ambulating without difficulty. No new concerns today. Underwent bilateral 2nd toe amputations yesterday. No pain as he has severe peripheral neuropathy. Objective: Vital Signs Temp Pulse Resp BP Pulse Ox 37.3 C 82 34 H 191/73 H 90 L 10/20/18 11:58 10/20/18 12:30 10/20/18 11:58 10/20/18 11:58 10/20/18 12:30 Laboratory Results 10/19/18 04:20 10/20/18 10:11 10/19/18 10/20/18 10/21/18 05:59 05:59 05:59 Intake Total 1383 1782 Output Total 1510 735 235 Balance -127 1047 -235 Microbiology 10/16/18 18:55 Blood Blood Culture - Final Streptococcus Pyogenes Grp A 10/16/18 18:40 Urine,Clean Catch Urine Culture - Final 10/16/18 18:40 Blood Blood Culture - Final 10/16/18 18:40 Blood Blood Panel (PCR) - Final Streptococcus Pyogenes Grp A Strep Pyogenes Group A Laboratory Tests 10/17/18 10/19/18 05:20 04:20 WBC 13.92 H 6.50 Hgb 11.5 L 11.0 L Plt Count 142 L 134 L Absolute Neuts (auto) 12.47 H 4.54 Absolute Lymphs (auto) 0.46 L 0.88 L Medications Generic Name Dose Route Start Last Admin Trade Name Freq PRN Reason Stop Dose Admin Cefazolin Sodium/Dextrose 100 mls @ 200 mls/hr 10/17/18 11:30 10/20/18 10:09 Ancef IV 11/16/18 11:29 100 mls Q12HRS [facility] Protocol - Physical Exam General Appearance: alert, no apparent distress, non-toxic EENT: No scleral icterus Respiratory: lungs clear, normal breath sounds, No respiratory distress, No crackles, No wheezing Neck: full range of motion, supple Cardiac/Chest: regular rate, rhythm, No bradycardia, No tachycardia, No diastolic murmur, No systolic murmur Extremities: other (Bilateral feet with surgical dressings in place, not taken down) Abdomen: non-tender, soft, No distended, No guarding Skin: No rash Neuro/Psych: alert, normal mood/affect, oriented x 3, No confused - Time Spent With Patient Time Spent with Patient: greater than 35 minutes Time Spent with Patient: Greater than 35 minutes spent on this patients care, greater than 50% of time spent counseling, educating, and coordinating care regarding the above mentioned plan. ICD10 Worksheet Patient Problems: Problems Problem Status Onset Chills Acute Diabetic foot ulcer Acute Fever Acute Sepsis Acute COPD (chronic obstructive pulmonary disease) Acute Cardiomyopathy, dilated Acute DM2 (diabetes mellitus, type 2) Acute Debility Acute
[2018-10-20] MEDS: CALCIUM CARBONATE 500 MG CHEWABLE TAB PO SCH ×2 (17:30→21:55)
--- NOTE | 2018-10-20 17:33 | SOAPPROG ---
SOAP Progress Note Assessment/Plan: Assessment: Bacteremia due to right foot, 2nd toe, cellulitis possible osteomyelitis, 2nd distal phalanx Plan: I will schedule bilateral 2nd toe amputations while patient is in-house, as opposed to as out-patient as originally planned. NPO tonight. OR time for TBD. 10/18/18 09:01 10/20/18 17:31 POD 1: 1. Redressed bilateral foot with DSD. OK to ambulate in sx shoes and/or boots. It would be okay to wear tennis shoes, if boots/shoes are too small, as well, if bandages fit. I will follow up with patient as outpatient in next 3-5 days pending d/c home. Subjective: Patient relates chills and fever, but no pain to feet. Notes that he has not been feeling well most of this day. Objective: Vital Signs Temp Pulse Resp BP Pulse Ox 37.3 C 82 34 H 191/73 H 90 L 10/20/18 11:58 10/20/18 12:30 10/20/18 11:58 10/20/18 11:58 10/20/18 12:30 Laboratory Results 10/19/18 04:20 10/20/18 10:11 10/19/18 10/20/18 10/21/18 05:59 05:59 05:59 Intake Total 1383 1782 Output Total 1510 735 235 Balance -127 1047 -235 PT 13.7 SEC (12.0-15.0) 10/19/18 06:05 INR 1.03 (0.83-1.16) 10/19/18 06:05 incision sites bilateral foot appear to be well-coapted as well as with out ASOI ; no active drainage; no malodor; sutures intact; no ascending cellulitis or edema - Time Spent With Patient Time Spent With Patient: 30 min - Pending Discharge Pending Discharge Within 24 Hours: No Pending Discharge Within 48 Hours: Yes Pending Discharge Date: 10/22/18 Pending Discharge Time: 11:00 ICD10 Worksheet Patient Problems: Problems Problem Status Onset Chills Acute Diabetic foot ulcer Acute Fever Acute Sepsis Acute COPD (chronic obstructive pulmonary disease) Acute Cardiomyopathy, dilated Acute DM2 (diabetes mellitus, type 2) Acute Debility Acute
[2018-10-20] MEDS: DOCUSATE SODIUM 100 MG CAP PO SCH (21:54)
[2018-10-20] MEDS: ATORVASTATIN CALCIUM 40 MG TAB PO SCH (21:55)
[2018-10-20] MEDS ORDERED: hydrALAZINE 20 MG/ML VIAL IVP ONE (23:22)
[2018-10-21] MEDS ORDERED: CEPACOL LOZENGE PO PRN (02:27)
[2018-10-21] MEDS ORDERED: BENZONATATE 100 MG CAP PO PRN (02:27)
[2018-10-21] MEDS: guaiFENesin 600 MG TAB.ER PO PRN ×2 (02:40→22:30)
[2018-10-21] MEDS ORDERED: HYDROmorphONE/DILAUDID 1 MG/ML INJ IVP PRN (04:08)
[2018-10-21] MEDS ORDERED: LORazepam 2 MG/ML INJ IVP PRN (04:08)
[2018-10-21] MEDS: HEPARIN 5,000 UNIT/0.5 ML INJ SC SCH ×3 (05:14→21:36)
[2018-10-21] MEDS: ceFAZolin 2 GM/DEXTROSE 100 ML IV SCH ×2 (08:12→21:37)
[2018-10-21] MEDS: INSULIN GLARGINE 100 UNITS/ML UNIT SC SCH ×2 (08:12→21:36)
[2018-10-21] MEDS: CHOLECALCIFEROL VIT D3 2,000 UNITS TAB/CAP PO SCH ×2 (08:13→21:37)
[2018-10-21] MEDS: FERROUS SULFATE 325 MG TAB PO SCH (08:13)
[2018-10-21] MEDS: CETIRIZINE 10 MG TAB PO SCH (08:13)
[2018-10-21] MEDS: LOSARTAN POTASSIUM 25 MG TAB PO SCH (08:13)
[2018-10-21] MEDS: ALLOPURINOL 100 MG TAB PO SCH (08:13)
[2018-10-21] MEDS: MAGNESIUM OXIDE 400 MG TAB PO SCH (08:13)
[2018-10-21] MEDS: CARVEDILOL 25 MG TAB PO SCH ×2 (08:14→21:35)
[2018-10-21] MEDS: OMEGA-3 FATTY ACIDS 1,000 MG CAP PO SCH (08:14)
[2018-10-21] MEDS: RANOLAZINE 500 MG TAB.ER PO SCH ×2 (08:15→21:34)
[2018-10-21] MEDS: INSULIN LISPRO 100 UNIT/ML SC SCH ×3 (08:26→17:33)
--- NOTE | 2018-10-21 10:05 | PCMIDPN ---
Assessment/Plan: Assessment: 73-year-old man with group a strep bacteremia complicating right 2nd toe ulceration and diabetes mellitus. No signs or symptoms of active or ongoing systemic infection. No limitations to oral step-down therapy. Alternative if linezolid not available would be an oral 3rd generation cephalosporin that would avoid cross reaction with his penicillin allergy. 1. Group A Strep bloodstream infection secondary to 2. 2. Right 2nd toe ulceration with possible osteomyelitis, amputated 10/19/18 3. Left 2nd toe amputation 10/19/2018 4. Diabetes mellitus type 2 5. CKD Plan: 1. Continue cefazolin 2 g Q 12 while inpatient 2. Prescription printed for linezolid 600 mg p.o. Twice daily times 10 days to be faxed to the pharmacy to see if this medication is covered under [facility] benefits ; last date of therapy would be 10/31/2018 3. Reiterated potential side effects of antibiotics including antibiotic associated diarrhea, rash, C diff colitis 4. Follow up with infectious diseases set for 11/01/2018 at 10:30 a.m. Bartolome Ruiz MD Infectious Diseases 10/21/18 10:06 Subjective: No fever or chills. Denies nausea, rash. One loose bowel movement daily. Appetite normal. No new concerns today. Objective: Vital Signs Temp Pulse Resp BP Pulse Ox 36.3 C 91 18 184/91 H 95 10/21/18 07:55 10/21/18 08:14 10/21/18 07:55 10/21/18 08:14 10/21/18 07:55 Laboratory Results 10/19/18 04:20 10/21/18 05:03 10/20/18 10/21/18 10/22/18 05:59 05:59 05:59 Intake Total 1782 1140 Output Total 735 800 200 Balance 1047 340 -200 Medications Generic Name Dose Route Start Last Admin Trade Name Freq PRN Reason Stop Dose Admin Cefazolin Sodium/Dextrose 100 mls @ 200 mls/hr 10/17/18 11:30 10/21/18 08:12 Ancef IV 11/16/18 11:29 100 mls Q12HRS [facility] Protocol Microbiology 10/16/18 18:55 Blood Blood Culture - Final Streptococcus Pyogenes Grp A 10/16/18 18:40 Urine,Clean Catch Urine Culture - Final 10/16/18 18:40 Blood Blood Culture - Final 10/16/18 18:40 Blood Blood Panel (PCR) - Final Streptococcus Pyogenes Grp A Strep Pyogenes Group A 10/19/18 17:10 Blood Blood Culture - Preliminary 10/19/18 15:00 Blood Blood Culture - Preliminary Laboratory Tests 10/17/18 10/19/18 05:20 04:20 WBC 13.92 H 6.50 Hgb 11.5 L 11.0 L Plt Count 142 L 134 L Absolute Neuts (auto) 12.47 H 4.54 Absolute Lymphs (auto) 0.46 L 0.88 L - Physical Exam General Appearance: alert, no apparent distress, non-toxic EENT: No scleral icterus Respiratory: lungs clear, normal breath sounds, No respiratory distress, No crackles, No wheezing Neck: full range of motion, supple Cardiac/Chest: regular rate, rhythm, No bradycardia, No tachycardia, No diastolic murmur, No systolic murmur Extremities: other (Bilateral lower extremity stasis dermatitis) Abdomen: normal bowel sounds, non-tender, soft, No distended, No guarding Skin: other (Bilateral lower extremity stasis dermatitis) Neuro/Psych: alert, normal mood/affect, oriented x 3, No confused - Time Spent With Patient Time Spent with Patient: greater than 25 minutes Time Spent with Patient: Greater than 25 minutes spent on this patients care, greater than 50% of time spent counseling, educating, and coordinating care regarding the above mentioned plan. ICD10 Worksheet Patient Problems: Problems Problem Status Onset Chills Acute Diabetic foot ulcer Acute Fever Acute Sepsis Acute COPD (chronic obstructive pulmonary disease) Acute Cardiomyopathy, dilated Acute DM2 (diabetes mellitus, type 2) Acute Debility Acute
--- NOTE | 2018-10-21 16:55 | HOSPPROG ---
Hospitalist Progress Note Assessment/Plan: 73 yo m w dm and ckd here w sepsis, osteomyelitis severe sepsis d/t GAS bacteremia with source R toe - cont ancef - s/p amputaton today by dr verduzco septic physiology has resolved outpt abx per ID CKD - at baseline - outpatient w/u for renal xplant CAD - previous stress last year with inferior infarct and serafin-infarct ischemia - planned outpatient stress this week - appreciate cadiology eval dilated cardiomyopathy and recovered EF - cont coreg, losartan DM2 - cont glargine 45/36 and SSI htn - cont coreg, hydral, losartan high today, follow HLD - lipitor hx anoxic brain injury - well compensated LBBB ZIYAD/CPAP COPD - inhalers proph: sc heparin dispo: home vs snf decision to be made 10/22 Subjective: case d/w dr cline. per pt and ot, borderline for home vs snf. apprehensive Objective: Vital Signs Temp Pulse Resp BP Pulse Ox 38.0 C 83 16 163/77 H 95 10/21/18 16:05 10/21/18 16:05 10/21/18 16:05 10/21/18 16:05 10/21/18 16:05 Laboratory Results 10/19/18 04:20 10/21/18 05:03 10/20/18 10/21/18 10/22/18 05:59 05:59 05:59 Intake Total 1782 1140 Output Total 735 800 200 Balance 1047 340 -200 PT 13.7 SEC (12.0-15.0) 10/19/18 06:05 INR 1.03 (0.83-1.16) 10/19/18 06:05 - Physical Exam Constitutional: no apparent distress, appears nourished Eyes: PERRL, anicteric sclera Ears, Nose, Mouth, Throat: moist mucous membranes, hearing normal Cardiovascular: regular rate and rhythym, no murmur, rub, or gallop Respiratory: no respiratory distress, no rales or rhonchi Gastrointestinal: normoactive bowel sounds, soft, non-tender abdomen Genitourinary: no bladder fullness, No mcdermott in urethra Skin: warm, normal color Musculoskeletal: full muscle strength, no muscle tenderness Neurologic: AAOx3 Psychiatric: interacting appropriately Lymph, Heme, Immunologic: no cervical LAD ICD10 Worksheet Patient Problems: Problems Problem Status Onset Chills Acute Diabetic foot ulcer Acute Fever Acute Sepsis Acute COPD (chronic obstructive pulmonary disease) Acute Cardiomyopathy, dilated Acute DM2 (diabetes mellitus, type 2) Acute Debility Acute
[2018-10-21] MEDS: CALCIUM CARBONATE 500 MG CHEWABLE TAB PO SCH ×2 (17:33→21:35)
[2018-10-21] MEDS: ATORVASTATIN CALCIUM 40 MG TAB PO SCH (21:34)
[2018-10-21] MEDS: DOCUSATE SODIUM 100 MG CAP PO SCH (21:35)
[2018-10-22] MEDS: HEPARIN 5,000 UNIT/0.5 ML INJ SC SCH (04:59)
[2018-10-22] MEDS: INSULIN LISPRO 100 UNIT/ML SC SCH (07:44)
[2018-10-22] MEDS: ceFAZolin 2 GM/DEXTROSE 100 ML IV SCH (07:52)
[2018-10-22] MEDS: ALLOPURINOL 100 MG TAB PO SCH (07:53)
[2018-10-22] MEDS: MAGNESIUM OXIDE 400 MG TAB PO SCH (07:53)
[2018-10-22] MEDS: CETIRIZINE 10 MG TAB PO SCH (07:53)
[2018-10-22] MEDS: CARVEDILOL 25 MG TAB PO SCH (07:53)
[2018-10-22] MEDS: RANOLAZINE 500 MG TAB.ER PO SCH (07:53)
[2018-10-22] MEDS: FERROUS SULFATE 325 MG TAB PO SCH (07:53)
[2018-10-22] MEDS: OMEGA-3 FATTY ACIDS 1,000 MG CAP PO SCH (07:54)
[2018-10-22] MEDS: CHOLECALCIFEROL VIT D3 2,000 UNITS TAB/CAP PO SCH (07:54)
[2018-10-22] MEDS: LOSARTAN POTASSIUM 25 MG TAB PO SCH (07:54)
--- NOTE | 2018-10-22 09:20 | PDIAF ---
- Diagnosis Diagnosis: Group A strep bacteremia, s/p toe amputation Code Status: Full Code - Medication Management Discharge Medications: electronically signed and located in the Home Medication List. PICC Care - Routine: N/A - Orders Services needed: Home Care, Registered Nurse, Master Asset Protection Representative, Physical Therapy, Occupational Therapy Home Care Face to Face: I certify that this patient was under my care and that I had the required [id number] encounter meeting the encounter requirements on the discharge day. My findings support the fact that the patient is homebound as defined in Home Care Face to Face Continued: CMS Chapter 7 Medicare Benefits Manual 30.1.1 , The condition of the patient is such that there exists a normal inability to leave home and consequently, leaving home would require a considerable and taxing effort. Isolation Type: None Diet Recommendation: no restrictions on diet Additional Instructions: Follow up with [facility] for Infectious Disease clinic 11/01 at 10:30 AM Linezolid 600 mg twice daily for 10 more days. Rx sent to [place] pharmacy. Hold your daily Aspirin until your surgeon deems it safe to resume. Follow up with Dr. Huggins in 2-3 days. Follow up with Nephrology. Follow up with [facility] for outpatient stress test. - Follow Up Care Current Providers and Referrals: Bartolome Ruiz MD [Medical Doctor] - Sivakumar Huggins DPM [Doctor of Podiatric Medicine] - NONE *PRIMARY CARE P,. [Primary Care Provider] - As per Instructions Castro Cervantes MD [Medical Doctor] - Bartolome Argueta MD [Medical Doctor] -
--- NOTE | 2018-10-22 10:16 | GDS ---
[f rep st] DISCHARGE SUMMARY DISCHARGE DIAGNOSES: 1. Severe sepsis secondary to group A strep bacteremia. 2. Group A strep bacteremia secondary to right toe infection, status post toe amputation. 3. Chronic kidney disease, at baseline. 4. Coronary artery disease with plans for an outpatient stress test at [facility]. 5. Dilated cardiomyopathy. 6. Type 2 diabetes mellitus. 7. Hypertension. 8. Hyperlipidemia. 9. History of anoxic brain injury. 10. Obstructive sleep apnea. Continue on CPAP. 11. Chronic obstructive pulmonary disease. No evidence of exacerbation. CONSULTANTS: 1. Dr. Bam Thomas, Infectious Disease. 2. Dr. Sivakumar Huggins, Podiatry. PROCEDURE: Flexor tenotomies and partial amputation of second toes bilaterally by Dr. Sivakumar Huggins, October 19, 2018. HISTORY OF DETAILS: Please see history and physical dated October 16, 2018. In brief, the patient is a 73-year-old male with multiple medical problems including diabetes, hypertension, hyperlipidemia, coronary artery disease and ischemic cardiomyopathy, who presented to the emergency department with shaking chills. He met criteria for severe sepsis and this was thought secondary to right toe osteomyelitis. He was admitted to the hospital for further management. HOSPITAL COURSE: The patient admitted to the hospital and started on sepsis protocol. He was initially treated with vancomycin and clindamycin. He underwent toe amputation as described above. Infectious Disease consulted and his antibiotics were tailored to cefazolin. They recommend he complete 10 more days of oral linezolid 600 mg twice daily and this prescription was sent to his pharmacy at the [place], but was unfortunately not covered. Instead, ID recommends oral Cefdinir 300 mg daily for 7 days. He was also evaluated by Cardiology preoperatively and he has plans for an outpatient stress test. I recommend he follow up with [facility] for the outpatient stress test as planned. In addition, he should follow up with Nephrology, as he is undergoing a renal transplant workup. His creatinine did remain at baseline during his hospitalization of around 2.6. On the day of discharge, the patient is stable. He is ambulating. Physical Therapy has recommended home health care. DISCHARGE VITAL SIGNS: His vital signs on the date of discharge, blood pressure 148/72, heart rate 72, respiratory rate 16. He is 93% on room air. DISPOSITION: The patient is discharged to home with home health care services including RN, PT, OT, social work, in stable condition. FOLLOWUP: 1. Dr. Phan Kwan at [facility] for Infectious Disease, November 01 at 10: [address] Sivakumar Huggins, Podiatry for followup on his toe amputation in 2 to [address]. [address] Phan Argueta, Nephrology for followup on renal transplant workup. 4. Dr. Castro Cervantes, [facility] for outpatient cardiac stress test. DISCHARGE MEDICATIONS: Please see [employer] for complete updated medication list. New medications on discharge include: Cefdinir 300 mg po daily #7 no refills. He will continue all other outpatient medications as previously prescribed. Please see [employer] for a complete list. There are no other changes to his other medicines. /[id number]/MODL MTDD
[2018-10-22] MEDS: INSULIN GLARGINE 100 UNITS/ML UNIT SC SCH (10:56)
[2018-10-22 11:55] VITALS: BP 115/55
--- NOTE | 2018-10-22 13:22 | ASMTLACE ---
LACE Length of stay for Answers: 4-6 days current admission Acuity / Level of Answers: Yes Care: Did the patient have an inpatient admission? Comorbidities - select Answers: Chronic pulmonary disease all that apply Congestive heart failure Diabetes (uncontrolled or controlled) Moderate or severe liver or renal disease Opioid dependence / Chronic pain Other Notes: HTN; HLD # of Emergency department Answers: 1-2 visits in the last 6 months Score: 22 Date Signed: 10/22/2018 01:22 PM Electronically Signed By:Guillermina Leone RN
--- NOTE | 2018-10-22 13:27 | ASMTCMCOM ---
CM Note CM Note Notes: Patient plan of care reviewed. Medically cleared for dc. Final orders via allscripts. Medication changes resent as well. [facility] to follow. CM available should other needs arise. Plan: Home with HHC and oral medications. Date Signed: 10/22/2018 01:26 PM Electronically Signed By:Guillermina Leone RN
--- NOTE | 2018-10-24 09:56 | ASDISCHSUM ---
Discharge Information Plan Status:Home with Home Health Medically Cleared to Leave:10/21/2018 Discharge Date:10/22/2018 02:34 PM D/C Disposition:Home Health Service [facility] D/C Disposition:Home, Routine, Self-Care Projected Discharge Date:10/22/2018 11:00 AM Transportation at D/C: Discharge Delay Reason: Follow-Up Date:10/22/2018 11:00 AM Discharge Slot: Final Diagnosis: Placement Information Referral Type:Home Infusion Referral ID:[id number] Provider Name: Address 1: Phone Number: Address 2: Fax Number: City: Selection Factors: State: Referral Type:*Home Health Care Services Referral ID:[id number] Provider Name:[facility] Address 1:[address] [place] [address] Address 2: City:[place] Selection Factors: State:[place] Referral Type:*Fci/SNF Referral ID:[id number] Provider Name: Address 1: Phone Number: Address 2: Fax Number: City: Selection Factors: State: Patient Contact Information Contact Name:JAXON Relationship: Address:[address] City:[place] Alternate Phone: State/Zip Code:[place] [address] Email: Financial Information Financial Class:Medicare Primary Plan Desc:MEDICARE INPATIENT Primary Plan Number:[id number] Secondary Plan Desc:[employer]/MDR SUPPLEMENT Secondary Plan Number:[id number] Assessment Information [facility] CM Progress Note CM Note CM Note Notes: Pt is a 73 yo m here with fever, chills, cellulitis, diabetes, and renal insufficiency. Pt is followed by Dr. Diaz for podiatry. Pt had referral to get his second toes on both feet amputated later this month but due to infection surgery will likely be sooner. Pts at bedside and supportive. Pt's discharge needs are TBD at this time, CM to follow. Date Signed: 10/17/2018 03:07 PM Electronically Signed By:JOSUÉ Turcios LACE LACE Length of stay for Answers: 4-6 days current admission Acuity / Level of Answers: Yes Care: Did the patient have an inpatient admission? Comorbidities - select Answers: Chronic pulmonary disease all that apply Congestive heart failure Diabetes (uncontrolled or controlled) Moderate or severe liver or renal disease Opioid dependence / Chronic pain Other Notes: HTN; HLD # of Emergency department Answers: 1-2 visits in the last 6 months Score: 22 Date Signed: 10/22/2018 01:22 PM Electronically Signed By:Guillermina Leone RN [facility] RYLIE Progress Note CM Note CM Note Notes: Patient plan of care reviewed in interdisciplinary rounds. He is to undergo amputation of infected second toes bilaterally tomorrow. Will need [facility]entiary IV antibiotics, likely PT and RN as well. [facility] CM to follow for needs. Plan: Home with IV infusion services and [facility] when medically cleared for discharge. Date Signed: 10/18/2018 12:32 PM Electronically Signed By:Guillermina Leone RN [facility] R[facility]IE Progress Note CM Note CM Note Notes: Patient plan of care reviewed. Met with his Abigail who is primarily his caregiver after he suffered sepsis and cardiac arrest about 3 years ago. [facility] She is very concerned about antibiotic therapy and acquisition of medications. She is to call me with the name of the previous C agency. It is anticipated he will need nursing care in addition to PT. Call placed to [facility] with 's concerns. CM to follow. Plan: Home with Home infusion and HHC when medically stable for discharge, Date Signed: 10/19/2018 03:47 PM Electronically Signed By:Guillermina Leone RN [facility] RYLIE Progress Note CM Note CM Note Notes: Patient plan of care reviewed in interdisciplinary rounds. 73 year old male with sepsis and is s/p bilateral second toe amputations. ID following. Needs for IV antibiotics versus oral medications. [facility] Likely able to discharge soon, per therapy should be independent. [facility]. Plan: Home with HHC when medically cleared for discharge to home. Date Signed: 10/20/2018 02:32 PM Electronically Signed By:Guillermina Leone RN [facility] CM Progress Note CM Note CM Note Notes: Met with Pt and to discuss discharge plan. Pt is insistant on discharging home but is open to SNF. Referals sent to SNF as a backup plan, is interested in [facility]. Per 's request, she would like to see how Pt does during the night. Will need to followup Thursday with [facility] [phone] to see about getting his script filled. Plan [facility] vs [facility]F Date Signed: 10/21/2018 04:44 PM Electronically Signed By:Laura Juarez [facility] CM Progress Note CM Note CM Note Notes: On 10/21 [facility] in [place] called to see if Pt's script had been received and what the bee of Linezolid 600mg PO1 tablet every 12hrs [id number] would cost. [facility] in Pharmacy quoted $8 for the script and this was conveyed to Pt & . reported that she uses [facility] ) so today I called the Pharmacy in [place] and Annetta (Pharmacist) said they would "not" approve the medication. [address]a Dr [place] here and notified. Date Signed: 10/22/2018 10:29 AM Electronically Signed By:Larua Juarez [facility] CM Progress Note CM Note CM Note Notes: Patient plan of care reviewed. Medically cleared for dc. Final orders via allscripts. Medication changes resent as well. [facility] to follow. CM available should other needs arise. Plan: Home with HHC and oral medications. Date Signed: 10/22/2018 01:26 PM Electronically Signed By:Guillermina Leone RN Intervention Information Intervention Type:*Incorrect Registration Date of Service:10/16/2018 10:57 AM Patient Type:Inpatient Staff Member:Joi Lazo Hours: Discipline: Severity: Comment:
== END 2018-10-22 14:34 | disposition home health service (06) | DRG 854 ==
LOC: OBSVTOIN 21:05 → F1N 21:54
PROVIDERS: ADMIT Internal Medicine; ATTEND Internal Medicine
DX: A40.0 Sepsis due to streptococcus, group A (principal); E11.69 Type 2 diabetes mellitus with other specified complication; M86.171 Other acute osteomyelitis, right ankle and foot; R78.81 Bacteremia; I42.0 Dilated cardiomyopathy; I13.0 Hypertensive heart and chronic kidney disease with heart failure and stage 1 through stage 4 chronic kidney disease, or unspecified chronic kidney disease; I50.20 Unspecified systolic (congestive) heart failure; M20.42 Other hammer toe(s) (acquired), left foot; E11.22 Type 2 diabetes mellitus with diabetic chronic kidney disease; N18.9 Chronic kidney disease, unspecified; R65.20 Severe sepsis without septic shock; E78.5 Hyperlipidemia, unspecified; G47.33 Obstructive sleep apnea (adult) (pediatric); J44.9 Chronic obstructive pulmonary disease, unspecified; E11.621 Type 2 diabetes mellitus with foot ulcer; E11.43 Type 2 diabetes mellitus with diabetic autonomic (poly)neuropathy; L03.031 Cellulitis of right toe; L97.519 Non-pressure chronic ulcer of other part of right foot with unspecified severity; E86.9 Volume depletion, unspecified; Z79.4 Long term (current) use of insulin; Z88.0 Allergy status to penicillin; Z87.820 Personal history of traumatic brain injury
CPT/HCPCS: 82435-PO; 82565-PO; 82947-PO; 84132-PO; 84295-PO; 84520-PO; 85014-ER; 96365; 97116-GP; 97161-GP; 97166-GO; 97530-GO; 97535-GO; G8978-GP-CI; G8979-GP-CI; J0360; J0690; J1644; J1815; J2250; J2704; J3010; J3370

== ENCOUNTER → 2018-11-11 | Outpatient (CLI) | payer OTHER, MEDICARE | LOC: BHFA 08:30 | PROVIDERS: ATTEND Internal Medicine Cardiovascular Disease | DX: R06.02 Shortness of breath (principal); I44.7 Left bundle-branch block, unspecified | CPT/HCPCS: 78452; 93017; A9500; J2785 ==

== ENCOUNTER → 2018-12-28 | Outpatient (CLI) | payer OTHER, MEDICARE | LOC: BHFA 08:30 | PROVIDERS: ATTEND Internal Medicine Cardiovascular Disease | DX: I50.22 Chronic systolic (congestive) heart failure (principal); R06.02 Shortness of breath; I44.7 Left bundle-branch block, unspecified; N18.9 Chronic kidney disease, unspecified | CPT/HCPCS: 78472; A9560 ==

== ENCOUNTER → 2018-12-30 | Outpatient (CLI) | payer OTHER, MEDICARE | LOC: BHFA 11:30 | PROVIDERS: ATTEND Internal Medicine Cardiovascular Disease | DX: I50.9 Heart failure, unspecified (principal) ==